=== PATIENT | male | born 1955 | race Caucasian/White ===

== ENCOUNTER 2021-07-25 12:23 | Inpatient (IN) | payer MEDICARE, SELFPAY ==
[2021-07-25] VITALS (21 sets, daily range): BP systolic 110–191; BP diastolic 67–120; PULSE 69–102; RESP 17–24; TEMP 36.4–36.8; O2SAT 96–100; BMI 36.3; BMI 34.9
--- NOTE | 2021-07-25 12:42 | XR_ITS ---
WS: [id number] Portable AP upright chest, 07/25/2021 Clinical Data: chest pain, sob Comparison: None. Findings: No nodules, masses or effusions are seen. The heart is normal. The pulmonary vascularity is not increased. No pneumonia or pneumothorax is seen. There is minimal tortuosity of the aortic arch. The diaphragms are flattened. XR/XR chest 1V portable [id number] Impression: Atherosclerosis and hyperinflation.
--- NOTE | 2021-07-25 12:42 | ECG_ITS ---
[facility] Test Date: 2021-07-25 Pat Name: Baldo Luong Department: Room: Gender: Male Substation Inspector: : 1955 Requested By: Amandeep Arenas Order Number: [id number] Di MD: Renuka Cash M.D. Measurements Intervals [place] Rate: 75 P: 93 [place]: 162 QRS: 28 QRSD: 117 T: 57 QT: 388 QTc: 434 Interpretive Statements SINUS RHYTHM POSSIBLE RIGHT VENTRICULAR CONDUCTION DELAY [RSR (QR) IN V1/V2] Compared to ECG 07/25/2021 12:34:48 Sinus tachycardia no longer present Incomplete right bundle-branch block no longer present Electronically Signed On 07-25-2021 23:44:12 SENIOR PRODUCTION PLANNER by Renuka Cash M.D. [id number]
--- NOTE | 2021-07-25 13:01 | ED_ITS ---
HPI - Chest Pain General: Chief Complaint: Chest Pain Stated Complaint: CP: SEEN DR VELAZQUEZ YESTERDAY Time Seen by Provider: 07/25/21 13:00 History of Present Illness: HPI narrative: Mr. Luong is a 65-year-old gentleman with significant past medical history of hypertension, hyperlipidemia, obesity, history of [place], COPD with chronic hypoxic respiratory failure who presents to the emergency department due to shortness of breath and chest pain. He reports shortness of breath has worsened from baseline over the past 2 to 3 weeks. Course has been gradually worsening. Onset is now moderate to severe and he describes marked dyspnea after only 10 feet of walking. Mild associated productive cough worse than baseline. He has been out of his albuterol treatments for the past few days. Additionally he has chest pressure in the lower chest bilaterally. This does correlate specifically with exertion and at times radiates to the right arm. Overall the course of symptoms has been worsening. No other new changes in health, exacerbating, or alleviating factors identified. Review of Systems General: Reports: 10 or more systems reviewed and unremarkable except in HPI and below PFSH ED PFSH: Medical History (Updated 07/29/21 @ 11:35 by Milad Mock M.D) Asthma Carpal tunnel syndrome, bilateral COPD (chronic obstructive pulmonary disease) Dupuytren's contracture of both hands History of [place] (myocardial infarction) Hypertension (Unknown) Myocardial infarct Surgical History (Updated 07/27/21 @ 12:00 by Yahir Lopes MD) History of heart artery stent 2 placed (reported maybe 2017) Third stent placed on 07/26 Family History Mother Cancer Other Heart disease Social History Smoking and tobacco status: former smoker Alcohol intake: never Adopted: No Caregiver/support person: No Lives independently: Yes service: No Current occupational status: disabled Current gender identity: Male Physical Exam Narrative: EXAM NARRATIVE: GENERAL/CONSTITUTIONAL -chronically ill-appearing. No acute distress. Obese Eyes - PERRL, no conjunctival injection ENMT - Atraumatic external nose and ears. Moist mucous membranes NECK - supple. trachea midline CARDIOVASCULAR - regular rate and rhythm. Peripheral pulses 2+ and equal RESPIRATORY - diminished to auscultation bilaterally, mild tachypnea, supplemental oxygen in place. ABDOMEN/GI - Nontender/Nondistended. MSK - Extremities without obvious deformity or tenderness to palpation SKIN - Warm, Dry NEURO - alert and appropriately oriented. Moves all extremities equally. Course ED course: - Patient was seen and evaluated by me at bedside - Patient placed on cardiac monitors, IV access obtained - Initial evaluation notable for no acute distress, nontoxic appearance. Exam as noted above. - Labs notable for no leukocytosis. Metabolic panel with mildly decreased sodium however no other significant electrolyte abnormality. Baseline troponin elevated. Covid negative. - Imaging notable for no lobar consolidation. - Discussed case with cardiology, treated patient is NSTEMI. Plan to admit for cardiac catheterization with cardiology consult and medicine admission. - Upon serial reexamination after treatment the patient was similar - Based on patient history, evaluation, labs, and imaging as interpreted the most likely cause of the patient's condition is NSTEMI - The results of ED evaluation were discussed with the patient including plan for admission due to requirement for level of care not available if discharged to prevent significant worsening/deterioration. -Hospitalist service contacted and agreed admit the patient. - Patient was admitted without further deterioration or significant events. Vital Signs: Vital signs: Vital Signs Temperature 97.9 F 07/30/21 08:32 Pulse Rate 65 07/30/21 12:12 Respiratory Rate 20 H 07/30/21 12:12 Blood Pressure 100/69 07/30/21 14:30 Pulse Oximetry 94 07/30/21 12:12 MDM - Chest Pain Medical Records: Attestation: I reviewed the patient's medical records. Lab Data: Attestation: I reviewed the patient's lab results. Labs: Lab Results 07/25/21 07/25/21 07/25/21 13:36 13:36 13:36 WBC 5.5 10^3/uL 10^3/ uL (4.0-10.0) RBC 4.75 10^6/uL 10^6 /uL (4.1-5.3) Hgb 14.0 g/dL g/dL (11.7-16.6) Hct 41.3 % L % (42.0-52.0) MCV 86.9 fl fl (80-94) MCH 29.5 pg pg (28.0-34.0) MCHC 33.9 g/dL g/dL (30.0-36.0) RDW 13.2 % % (12.1-15.1) Plt Count 181 10^3/cmm 10^3 /cmm (130-400) MPV 10.2 fL fL (7.4-10.4) Neut % (Auto) 75.5 % % Lymph % (Auto) 14.6 % % Vermilion % (Auto) 9.3 % % Eos % (Auto) 0.0 % % Baso % (Auto) 0.2 % % Neut # (Auto) 4.14 10^3/uL 10^3 /uL (1.8-7.7) Lymph # (Auto) 0.8 10^3/uL 10^3/ uL (0.8-4.8) Vermilion # (Auto) 0.5 10^3/uL 10^3/ uL (0.2-0.9) Eos # (Auto) 0.0 10^3/uL 10^3/ uL (0.0-0.8) Baso # (Auto) 0.0 10^3/uL 10^3/ uL (0.0-0.1) Nucleated RBC % (a uto) 0 % % Nucleated RBCs # 0.0 /100WBC /100W BC Sodium 135 mmol/L L mmol /L (136-145) Potassium 4.5 mmol/L mmol/L (3.5-5.1) Chloride 100 mmol/L mmol/L (98-107) Carbon Dioxide 24 mmol/L mmol/L (22-29) Anion Gap 15.5 (5-19) BUN 25 mg/dL H mg/dL (8-23) Creatinine 1.2 mg/dL mg/dL (0.7-1.2) GFR Calculation 60.8 mL/min L mL/ min (90-130) Glucose 113 mg/dL mg/dL (65-115) Estimat Average Gl ucose Hemoglobin A1c Calculated Osmolal ity 285 mOsm/kg mOsm/ kg (285-295) Calcium 8.5 mg/dL mg/dL (8.5-10.5) Total Bilirubin 0.6 mg/dL mg/dL (0.15-1.2) AST 29 U/L U/L (0-40) ALT 27 U/L U/L (0-41) Alkaline Phosphata se 87 IU/L IU/L (40-130) Troponin T Baselin e 317 ng/L H* ng/L (0-15) Total Protein 7.0 g/dL g/dL (6.6-8.7) Albumin 3.7 g/dL g/dL (3.5-5.2) Globulin 3.3 g/dL g/dL (1.3-4.6) Triglycerides Cholesterol LDL Cholesterol, C alc HDL Cholesterol LDL/HDL Ratio Cholesterol/HDL Ra elliott Lipase 21 U/L U/L (13-60) Procalcitonin 0.17 ng/mL ng/mL (0-0.5) TSH SARS-CoV-2 Ag (Rap id) 07/25/21 07/25/21 07/25/21 13:36 13:36 13:43 WBC RBC Hgb Hct MCV MCH MCHC RDW Plt Count MPV Neut % (Auto) Lymph % (Auto) Vermilion % (Auto) Eos % (Auto) Baso % (Auto) Neut # (Auto) Lymph # (Auto) Vermilion # (Auto) Eos # (Auto) Baso # (Auto) Nucleated RBC % (a uto) Nucleated RBCs # Sodium Potassium Chloride Carbon Dioxide Anion Gap BUN Creatinine GFR Calculation Glucose Estimat Average Gl ucose 117 Hemoglobin A1c 5.7 % % (4.0-6.0) Calculated Osmolal ity Calcium Total Bilirubin AST ALT Alkaline Phosphata se Troponin T Baselin e Total Protein Albumin Globulin Triglycerides 115 mg/dL mg/dL (0-150) Cholesterol 119 mg/dL mg/dL (0-200) LDL Cholesterol, C alc 69 mg/dL mg/dL (50-129) HDL Cholesterol 27 mg/dL L mg/dL (60-100) LDL/HDL Ratio 2.56 RATIO RATIO (0.00-3.22) Cholesterol/HDL Ra elliott 4.41 mg/dL mg/dL (1.0-5.00) Lipase Procalcitonin TSH 0.75 uIU/mL uIU/m L (0.27-4.20) SARS-CoV-2 Ag (Rap id) Negative (Negative) EKG Data^: EKG 1: Attestation: I personally reviewed and interpreted this EKG as follows: EKG interpretation date: 07/25/21 EKG interpretation time: 14:01 Interpretation: Twelve-lead EKG shows a regular rhythm at a rate of 100. HI interval 158, QRS duration 112, QTc 407. Normal axis. Interpretation: Sinus rhythm. Nonspecific ST segment abnormalities. EKG 2: Attestation: I personally reviewed and interpreted this EKG as follows: EKG interpretation date: 07/25/21 EKG interpretation time: 15:08 Interpretation: Twelve-lead EKG shows a regular rhythm at a rate of 75. HI interval 162, QRS duration 117, QTc 416. Normal axis. Interpretation: Sinus rhythm. Nonspecific ST segment abnormalities. Discharge Plan Discharge Patient Disposition: Admitted As Inpatient Admit Provider: Yahir Lopes Clinical Impression: Non-ST elevation (NSTEMI) myocardial infarction, COPD (chronic obstructive pulmonary disease) Condition: Stable Discharge Diet: Cardiac Discharge Activity: Increase activity as tolerated Coding Level of Care Code ED Concrete Vibrator Operator for Gladys Quezada
[2021-07-25 13:42] LABS: Basophils % 0.2 %; Hematocrit 41.3 % (42.0-52.0); Lymphocytes # 0.8 10^3/uL (0.8-4.8); Lymphocytes % 14.6 %; Mean Corpuscular HGB Conc 33.9 g/dL (30.0-36.0); Mean Corpuscular Hemoglobin 29.5 pg (28.0-34.0); Mean Corpuscular Volume 86.9 fl (80-94); Mean Platelet Volume 10.2 fL (7.4-10.4); Monocytes # 0.5 10^3/uL (0.2-0.9); Monocytes % 9.3 %; Neutrophils # 4.14 10^3/uL (1.8-7.7); Neutrophils % 75.5 %; Nucleated Red Blood Cells % 0 %; Platelet Count 181 10^3/cmm (130-400); Red Blood Count 4.75 10^6/uL (4.1-5.3); Red Cell Distribution Width 13.2 % (12.1-15.1); White Blood Count 5.5 10^3/uL (4.0-10.0)
[2021-07-25] MEDS: ipratropium-albuterol 3 mL Neb INHALATION (13:51)
[2021-07-25 14:18] LABS: Alanine Aminotransferase 27 U/L (0-41); Albumin Level 3.7 g/dL (3.5-5.2); Alkaline Phosphatase 87 IU/L (40-130); Anion Gap 15.5 (5-19); Aspartate Amino Transferase 29 U/L (0-40); Blood Urea Nitrogen 25 mg/dL (8-23); Calcium 8.5 mg/dL (8.5-10.5); Carbon Dioxide 24 mmol/L (22-29); Chloride 100 mmol/L (98-107); Globulin 3.3 g/dL (1.3-4.6); Glomerular Filtration Rate 60.8 mL/min (90-130); Glucose 113 mg/dL (65-115); Lipase 21 U/L (13-60); Osmolality Calculated 285 mOsm/kg (285-295); Potassium 4.5 mmol/L (3.5-5.1); Sodium 135 mmol/L (136-145); Total Bilirubin 0.6 mg/dL (0.15-1.2)
[2021-07-25 14:19] LABS: Troponin(5th) Baseline 317 ng/L (0-15)
[2021-07-25 14:21] LABS: Procalcitonin 0.17 ng/mL (0-0.5)
[2021-07-25 14:23] LABS: SARS Covid-2 Antigen Negative (Negative)
[2021-07-25] MEDS: aspirin 81 mg Chew Tablet 324 MG PO (14:27)
--- NOTE | 2021-07-25 14:42 | ECG_ITS ---
[facility] Test Date: 2021-07-25 Pat Name: Baldo Luong Department: Room: Gender: Male Hand Shoes Sewer: : 1955 Requested By: Amandeep Arenas Order Number: [id number] Di MD: Renuka Cash M.D. Measurements Intervals [place] Rate: 100 P: 92 [place]: 158 QRS: 47 QRSD: 112 T: 62 QT: 350 QTc: 453 Interpretive Statements SINUS TACHYCARDIA INCOMPLETE RIGHT BUNDLE BRANCH BLOCK [90+ ms QRS DURATION, TERMINAL R IN V1/V2, 40+ ms S IN I/aVL/V4/V5/V6] ABNORMAL RHYTHM ECG No previous ECG available for comparison Electronically Signed On 07-25-2021 23:55:05 FREEZING MACHINE OPERATOR by Renuka Cash M.D. [id number]
[2021-07-25] MEDS: enoxaparin 120 mg/0.8 mL Syringe SUBCUT (15:12)
--- NOTE | 2021-07-25 16:13 | P.HP_ITS ---
Providers/Chief Complaint Primary Care Provider: ELLIOT Coreas Chief Complaint: CP: SEEN DR VELAZQUEZ YESTERDAY History of Present Illness Baldo Luong is a 65-year-old male who has history of chronic hypoxia 3L at baseline for COPD, established coronary disease status post PCI to LAD 2 years ago in [place] has been experiencing shortness of breath and chest discomfort for last 2 to 3 weeks. He was evaluated by Dr. Mock yesterday in the clinic and he was recommended to go to the ER for admission however patient waited until today. There is plan for angiogram. Dr. Mock is consulted. EKG showing incomplete right bundle branch block, troponin significantly high, patient hemodynamically stable Patient is stating that for last 3 weeks she has been experiencing shortness of breath on exertion, he has not noticed any fever, productive cough, is endorsing on and off orthopnea and PND, he has quit smoking 5 years ago. Drinks alcohol occasionally. He has also noticed some epigastric discomfort which she is describing as burning sensation however it radiates towards his both arms. He has not noticed any diaphoresis or episode of emesis with it. He is compliant with his medications. Patient is stating that his stent was placed in [facility] in [place], 2 stents have been placed last stent was placed in [place]. In total he has had 2 MIs in the past. Requested records from the hospital Started nitro drip for hypertensive emergency Significant troponin leakage Patient is chest pain-free Heart rate 85, sinus Not complaining of active shortness of breath, no conversational dyspnea Dr. Mock planning for angiogram in the morning Patient does not believe in COVID-19 infection, he is not vaccinated for flu or COVID-19. Patient is stating that yesterday his sister was sick and she needed to see a doctor right away that is why he was unable to come to the ER. He does not have any DPOA but prefers to have his [id number] informed first , CBC, BMP unremarkable, chest x-ray: Unremarkable, TSH and procalcitonin unremarkable in the ER he was given loading dose of aspirin, he was given first dose of Lovenox and DuoNeb treatment Review of Systems Const: Reports: chills, body aches and fatigue Eyes: Reports: change in vision ENMT: Denies: throat pain Card: Reports: dyspnea on exertion and orthopnea Resp: Reports: dyspnea GI: Denies: abdominal pain : Denies: flank pain Musc: Denies: neck pain Skin/Breast: Denies: changing lesions Neuro: Denies: headache(s) Psych: Denies: anxiety Endo: Denies: polyuria Abilio/Lymph: Denies: easy bruising All/Imm: Denies: urticaria Medications/Allergies Home Medications Medication Instructions Recorded Confirmed Last Taken Type atorvastatin 40 mg tablet 40 mg PO DAILY 07/10/21 07/25/21 Unknown History clopidogrel 75 mg tablet 75 mg PO DAILY 07/10/21 07/25/21 Unknown History fluticasone fur. 100 mcg-umeclid 1 inh INHALATION Q24H 07/10/21 07/25/21 Unknown History 62.5 mcg-vilant 25 mcg inhalat.powder metoprolol succinate 25 mg 25 mg PO DAILY 07/10/21 07/25/21 Unknown History tablet,extended release 24 hr acetaminophen [Tylenol Ex Str 1,000 mg PO Q4H PRN 07/25/21 07/25/21 Unknown History Rapid Release] aspirin [Aspir-81] 81 mg PO DAILY 07/25/21 07/25/21 Unknown History naproxen sodium [Aleve] 660 - 880 mg PO Q12H PRN 07/25/21 07/25/21 Unknown History Allergies Allergy/AdvReac Type Severity Reaction Status Date / Time Penicillins Allergy Unknown Verified 07/25/21 14:07 PFSH Acute PFSH: Medical History (Updated 07/25/21 @ 19:25 by Yahir Lopes MD) Asthma Carpal tunnel syndrome, bilateral COPD (chronic obstructive pulmonary disease) Dupuytren's contracture of both hands History of [place] (myocardial infarction) Hypertension (Unknown) Myocardial infarct Surgical History History of heart artery stent 2 placed (reported maybe 2017) Family History Mother Cancer Other Heart disease Social History Smoking and tobacco status: former smoker Alcohol intake: never Adopted: No Caregiver/support person: No Lives independently: Yes service: No Current occupational status: disabled Current gender identity: Male Vitals/I&O/Wt Last Vital Signs Temp 97.6 F 07/25/21 12:36 Pulse 85 07/25/21 15:05 Resp 17 07/25/21 15:54 BP 138/88 07/25/21 15:54 Pulse Ox 97 07/25/21 15:54 Weight last 48 hrs Weight 121.563 kg Physical Exam Narrative: EXAM NARRATIVE: Morbidly obese male Appears stated age S1, S2 Hypertensive emergency No active neurological symptoms EOMI, PERRLA Awake alert Distended abdomen with obesity Saturating well on 2 L nasal cannula Bilateral breath sound without adventitious rhonchi or crackles Appropriate mood and affect No leg edema Data : 07/25/21 13:36 07/25/21 13:36 A&P Assessment and plan (1) Non-ST elevation (NSTEMI) myocardial infarction: Status: Acute (2) Unstable angina: Status: Acute (3) COPD (chronic obstructive pulmonary disease): Status: Acute (4) Hypertension: Status: Acute Qualifiers: Hypertension type: primary hypertension Qualified Code(s): I10 - Essential (primary) hypertension (5) Hypertensive emergency: Status: Acute Additional A&P Information NSTEMI No active chest pain Dyspnea on exertion for last 3 weeks, troponin [address] elevation ID changes on EKG Plan for angiogram in the morning N.p.o. after midnight Started aspirin, Plavix, atorvastatin and therapeutic dose of Lovenox Echo in the morning Covid antigen negative patient is not vaccinated Hypertensive emergency: TSH is normal, procalcitonin unremarkable We will start nitro drip and titrate to bring pressure below 140/80 mmHg Nurse updated in CSU, no active chest pain No active neurological signs or symptoms I do not see any antihypertensive agents in his home medications Check lipid panel Patient denying chest pain or radiation of pain between his shoulder blades No radiio-radial delay, threshold low to get CTA chest to rule out dissection in case he starts having chest pain overnight COPD without acute exacerbation Currently at baseline 3 to nasal cannula Full code N.p.o. after midnight DVT prophylaxis covered with therapeutic Lovenox No DPOA but wants his [id number] to be notified first [facility] Attestations Medical Necessity Statement*: More than 2 midnights anticipated Time Spent in Patient Care: Greater than 35 minutes Coding Level of Care Code Acute Binder Sorter for Chg Fwd Diagnoses Non-ST elevation (NSTEMI) myocardial infarction I21.4 Unstable angina I20.0 COPD (chronic obstructive pulmonary disease) J44.9 Hypertension I10 Hypertension type: primary hypertension Hypertensive emergency I16.1
[2021-07-25 16:24] LABS: Troponin 5 2HR Delta -1.1 ABS# (0-10)
[2021-07-25 16:25] LABS: Troponin 5 2HR 315.9 ng/L (0-15)
[2021-07-25 17:21] LABS: Estmated Average Glucose 117; Hemoglobin A1C 5.7 % (4.0-6.0)
[2021-07-25 17:22] LABS: Chol HDL Ratio 4.41 mg/dL (1.0-5.00); Cholesterol 119 mg/dL (0-200); HDL Cholesterol 27 mg/dL (60-100); LDL Cholesterol Calculated 69 mg/dL (50-129); LDL HDL Ratio 2.56 RATIO (0.00-3.22); Thyroid Stimulating Hormone 0.75 uIU/mL (0.27-4.20); Triglycerides 115 mg/dL (0-150)
--- NOTE | 2021-07-25 18:20 | PM.CONSULT ---
Providers/Reason For Consult Consulting Physician/Specialty*: Milad Mock MD/ Cardiology Reason for Consult*: NSTEMI Requesting Physician: Dr Arenas Attending Physician: Yahir Lopes MD Primary Care Provider: ELLIOT Coreas History of Present Illness History of Present Illness Baldo Luong is a 65 year old male with past medical history of hypertension, COPD on 3 L oxygen chronically, coronary artery disease s/p PCI 1 to 2 years ago in [place] presented for complaints of substernal heartburn and pressure. According to patient he was doing well about 2 to 3 weeks ago when he started noticing substernal heartburn and pressure sensation. It radiates to both arms. Both exertional and nonexertional. I saw patient in the office yesterday and I advised him to go to the ER however he did not want to come to the ER and wanted to be managed as outpatient. We had requested outpatient cardiac catheterization however given his worsening symptoms of chest pain he presented to the hospital today. His initial troponin was over 300. EKG shows normal sinus rhythm with heart rate of 75 bpm, incomplete right bundle branch block and no ischemic changes. Review of Systems Const: Reports: fatigue; Denies: fever(s) or chills Eyes: Denies: change in vision ENMT: Denies: throat pain Card: Reports: chest pain, dyspnea on exertion, orthopnea and leg pain with exertion; Denies: palpitations, irregular heart rhythm, swelling of feet/ankles, lightheadedness, syncope or pre-syncope Resp: Reports: dyspnea; Denies: productive cough GI: Denies: nausea, vomiting or diarrhea : Denies: difficulty urinating or urinary frequency Musc: Reports: back pain; Denies: neck pain or joint pain Skin/Breast: Denies: rash or erythema Neuro: Denies: numbness in extremities or weakness in extremities Psych: Denies: anxiety, depression, suicidal ideation or homicidal ideation Endo: Reports: tired all the time Abilio/Lymph: Reports: easy bruising and easy bleeding All/Imm: Denies: seasonal rhinorrhea Meds/Allergies Home Medications and Allergies Home Medications Medication Instructions Recorded Confirmed Last Taken Type atorvastatin 40 mg tablet 40 mg PO DAILY 07/10/21 07/25/21 Unknown History clopidogrel 75 mg tablet 75 mg PO DAILY 07/10/21 07/25/21 Unknown History fluticasone fur. 100 mcg-umeclid 1 inh INHALATION Q24H 07/10/21 07/25/21 Unknown History 62.5 mcg-vilant 25 mcg inhalat.powder metoprolol succinate 25 mg 25 mg PO DAILY 07/10/21 07/25/21 Unknown History tablet,extended release 24 hr acetaminophen [Tylenol Ex Str 1,000 mg PO Q4H PRN 07/25/21 07/25/21 Unknown History Rapid Release] aspirin [Aspir-81] 81 mg PO DAILY 07/25/21 07/25/21 Unknown History naproxen sodium [Aleve] 660 - 880 mg PO Q12H PRN 07/25/21 07/25/21 Unknown History Allergies Allergy/AdvReac Type Severity Reaction Status Date / Time Penicillins Allergy Unknown Verified 07/25/21 14:07 PFSH Acute PFSH: Medical History Asthma Carpal tunnel syndrome, bilateral COPD (chronic obstructive pulmonary disease) Dupuytren's contracture of both hands History of [place] (myocardial infarction) Hypertension (Unknown) Myocardial infarct Surgical History History of heart artery stent 2 placed (reported maybe 2017) Family History Mother Cancer Other Heart disease Social History Smoking and tobacco status: former smoker Alcohol intake: never Adopted: No Caregiver/support person: No Lives independently: Yes service: No Current occupational status: disabled Current gender identity: Male Vitals/I&O/Wt Last Vital Signs Temp 97.6 F 07/25/21 12:36 Pulse 69 07/25/21 17:34 Resp 17 07/25/21 17:34 BP 187/120 07/25/21 17:34 Pulse Ox 98 07/25/21 17:34 Weight last 48 hrs Weight 268 lb Physical Exam Narrative: EXAM NARRATIVE: GENERAL: Patient is alert, awake and oriented x3. [] NECK: No jugular vein distension. [] HEENT: No cyanosis. No icterus. No pallor. [] HEART: Regular S1 and S2. No murmur, rub or gallop. [] LUNGS: Clear to auscultate bilaterally. [] ABDOMEN: Soft, nontender and nondistended. Positive bowel sounds. No guarding, rebound or tenderness. [] CENTRAL NERVOUS SYSTEM: Grossly nonfocal. [] EXTREMITIES: Lower extremities with 1+ edema bilaterally. Pulses palpable in the lower extremities, both dorsalis pedis and posterior tibial. [] A&P Assessment and plan (1) Non-ST elevation (NSTEMI) myocardial infarction: Status: Acute (2) COPD (chronic obstructive pulmonary disease): Status: Acute (3) Hypertension: Status: Acute Qualifiers: Hypertension type: primary hypertension Qualified Code(s): I10 - Essential (primary) hypertension (4) Hypertension: Status: Acute Patient has presented with non-ST elevation DE. He has been having unstable angina symptoms for the last 2-3 weeks. Trend troponin Continue aspirin and Plavix. High intensity statin therapy. Start therapeutic Lovenox. Order echocardiogram. We will proceed with coronary angiogram with possible percutaneous coronary intervention tomorrow. N.p.o. past midnight. Risks and benefits of the procedure have been discussed with the patient who agrees with proceeding with procedure. Thank you for involving us with care of this patient. We will continue to follow. Please call with questions. Coding Level of Care Code Acute Airplane Pilot Chief for Gladys Quezada Diagnoses Non-ST elevation (NSTEMI) myocardial infarction I21.4 COPD (chronic obstructive pulmonary disease) J44.9 Hypertension I10 Hypertension type: primary hypertension Hypertension I10
--- NOTE | 2021-07-25 18:42 | ECG_ITS ---
[facility] Test Date: 2021-07-25 Pat Name: Baldo Luong Department: Room: 103 Gender: Male Cheese Wrapper: : 1955 Requested By: Amandeep Arenas Order Number: [id number] Di MD: Renuka Cash M.D. Measurements Intervals [place] Rate: 73 P: 81 [place]: 163 QRS: 24 QRSD: 118 T: 51 QT: 410 QTc: 452 Interpretive Statements SINUS RHYTHM INCOMPLETE RIGHT BUNDLE BRANCH BLOCK [90+ ms QRS DURATION, TERMINAL R IN V1/V2, 40+ ms S IN I/aVL/V4/V5/V6] Compared to ECG 07/25/2021 15:02:36 Incomplete right bundle-branch block now present Electronically Signed On 07-25-2021 23:56:35 FIELD EDUCATION COORDINATOR by Renuka Cash M.D. [id number]
--- NOTE | 2021-07-25 19:27 | PC.NURSE ---
Admit Note Patient admitted to CSU room 103 from ED via stretcher. Patient able to ambulate to bathroom and back to bed with standby assist. Dr Lopes in to see patient. Dr Mock consulted. Discussed plan for LHC in the morning. Patient verbalized complete understanding. Covering service notified. Patient presents with increased SOB and chest pain. Orders reviewed & will continue to monitor. Patient and/or inbound sales representative oriented to environment, equipment, and informed of the following as found in the admission booklet: patient rights & responsibilities, visitor policy, hand and respiratory hygiene practice. Other education includes: Nitroglycerin. Patient verbalized complete understanding.
--- NOTE | 2021-07-25 19:27 | PC.NURSE ---
Admit Note Patient admitted to [] from [] via []. Covering service notified. Patient presents with []. Orders reviewed & will continue to monitor. Patient and/or dental sales representative oriented to environment, equipment, and informed of the following as found in the admission booklet: patient rights & responsibilities, visitor policy, hand and respiratory hygiene practice. Other education includes: []. Patient and/or dental sales representative [ResponseToTeaching].
[2021-07-25] MEDS: nitroglycerin drip 50 MG/250 ML PREMIX IV (19:59)
[2021-07-25 20:00] LABS: Troponin 5 6HR 258.4 ng/L (0-15)
[2021-07-26] VITALS (59 sets, daily range): BP systolic 95–192; BP diastolic 51–125; PULSE 65–110; RESP 8–24; TEMP 36.6–36.7; O2SAT 94–100
[2021-07-26] MEDS: morphine IR 15 mg Tablet PO ×3 (01:35→18:30)
[2021-07-26 03:55] LABS: Basophils % 0.2 %; Hematocrit 39.5 % (42.0-52.0); Lymphocytes # 0.9 10^3/uL (0.8-4.8); Lymphocytes % 14.8 %; Mean Corpuscular HGB Conc 32.9 g/dL (30.0-36.0); Mean Platelet Volume 10.2 fL (7.4-10.4); Monocytes # 0.4 10^3/uL (0.2-0.9); Monocytes % 7.3 %; Neutrophils # 4.43 10^3/uL (1.8-7.7); Neutrophils % 77.4 %; Nucleated Red Blood Cells % 0 %; Platelet Count 169 10^3/cmm (130-400); Red Blood Count 4.49 10^6/uL (4.1-5.3); White Blood Count 5.7 10^3/uL (4.0-10.0)
[2021-07-26 05:11] LABS: Anion Gap 17.2 (5-19); Blood Urea Nitrogen 27 mg/dL (8-23); Calcium 7.7 mg/dL (8.5-10.5); Carbon Dioxide 19 mmol/L (22-29); Chloride 98 mmol/L (98-107); Glucose 110 mg/dL (65-115); Osmolality Calculated 276 mOsm/kg (285-295); Potassium 4.2 mmol/L (3.5-5.1); Sodium 130 mmol/L (136-145)
[2021-07-26] MEDS: sodium chloride 0.9% 1,000 ML 50 ML IV (05:13)
[2021-07-26] MEDS: diphenhydrAMINE 50 mg Capsule PO (05:13)
[2021-07-26] MEDS: ondansetron 2 mg/ML SDV 2 mL 4 MG IVP (05:24)
--- NOTE | 2021-07-26 05:37 | XACV_ITS ---
Exam Room: [facility] Ht: 183 cm Wt: 117 kg BSA: 2.47 m2 Gender: Male : 1955 Any Known Allergies: Penicillins Exam Priority: Routine Indication(s): - Non-ST elevation NE Procedure(s): Procedure Description: Diagnostic procedure Procedure Description: Coronary Angiography Procedure Description: Percutaneous coronary intervention Diagnostic Cath Status: Urgent Diagnostic Findings * No significant disease noted in the Left Main, Left Anterior Descending, Right, or Circumflex coronary arteries. Left main artery is very short, almost separate ostia of LAD and left circumflex artery. LAD does not have any significant disease. RCA has diffuse mild luminal irregularities. Left circumflex artery has a patent stent that extends into OM1. OM1 is a large vessel. OM1 has severe 90% stenosis post prior stent.. * First Obtuse Marginal Branch Segment: severe 90% stenosis, DOM: 3 flow. * Coronary angiography shows right dominance. PCI Status: Urgent PCI Indication: NSTE - ACS Interventional Findings * Procedure details: We engaged left main artery with XB 3.5 guide catheter. IV heparin was administered to maintain an ACT above 250 seconds. A 0.014 run-through guidewire was used to cross the stenosis and was placed in distal OM 1 branch. 2.5 x 12 mm semicompliant balloon was used to predilate the stenosis in the OM branch. This was followed by placement of 2.75 x 18 mm resolute Desirae drug-eluting stent. At this time final angiogram was performed that showed excellent stent expansion, DOM-3 flow and no residual stenosis. Guidewire and guide catheter were removed. Patient left the Stroboscope Operator in a stable condition. * First Obtuse Marginal Branch Segment: 90% stenosis treated with a AB TREK 2.50X12 RX BALLOON, and BRITTANY Epperson DESIRAE 2.75X18 CORNELIO. 0% residual stenosis, DOM: 3 flow. Conclusions 1. No significant disease noted in the Left Main, Left Anterior Descending, Right, or Circumflex coronary arteries. Left main artery is very short, almost separate ostia of LAD and left circumflex artery. LAD does not have any significant disease. RCA has diffuse mild luminal irregularities. Left circumflex artery has a patent stent that extends into OM1. OM1 is a large vessel. OM1 has severe 90% stenosis post prior stent.. 2. First Obtuse Marginal Branch Segment was treated with a Balloon, and Drug Eluting Stent. Recommendations * Transfer back to [facility]. * Aspirin and Plavix for at least 1 year. * High intensity statin therapy. * Order echocardiogram. * Outpatient cardiology follow-up in 4 weeks. Interventional RX Recommendation: PCI w/o planned CABG Diagnostic RX Recommendation: PCI w/o planned CABG Anticoagulation: Heparin Pressures Phase:Rest AO : / ( 0 ) @ 4:21:00 AM 127 / 88 ( 108 ) @ 4:33:00 AM 163 / 81 ( 112 ) @ 4:40:00 AM 163 / 81 ( 112 ) @ 4:40:00 AM 147 / 101 ( 119 ) @ 4:55:00 AM LV : 180 / -29 / 15 @ 4:40:00 AM 187 / -12 / 23 @ 4:40:00 AM Valves Phase:DefaultPhase AV : 23.0 @ 7:06:02 AM AV Mean Gradient: 28.0 @ 7:06:02 AM Clinical Evaluation EBL: 5mL-10mL Procedural Details Procedure Consent Obtained. Admit Source: In Patient. Pre-Procedure Time Out. Identified patient by full name and date of as verbalized by the patient/guarantor. Does the consent match the physician's order: Yes. Accurate & Complete Informed Consent: Yes. Inpatient/Outpatient History & Physical on Chart: Yes. Visualize and Verify Site with Patient/Guarantor: N/A. Relevant Radiology Images available: N/A. Pre-op teaching completed and patient verbalized understanding. The risks, benefits, and alternatives of sedation and/or procedure were discussed by physician. The patient agrees to continue. Procedure started. Current Diagnosis : NSTEMI. [facility] Clinical Fraility Score: 4: Vulnerable. Stroboscope Operator Indications: Other, NSTEMI. Chest Pain Symptom Assessment: Typical Angina Symptoms. Cardiovascular Instability: No. Stable. Correct patient, site and procedure confirmed by cath team. Current diagnosis: NSTEMI. Physician notified. Physician arrived. PERRLA. Strong, equal hand grease rack worker bilaterally. Lungs clear x 5 lobes. IV Site on Arrival: 20 gauge in the right anticubital. IV Fluids: 0.9% NaCl at KVO. 0 mL infused prior to calibration laboratory technician. Pre Procedural Pulses: bilateral radial was 3+. Pre Procedural Pulses: bilateral posterior tibial was Doppled. Pre Procedural Pulses: bilateral posterior tibial was Doppled. Oxygen started at 3liters/min via nasal canula. right groin was prepped with chloroprep then draped in the usual sterile fashion. right radial was prepped with chloroprep then draped in the usual sterile fashion. Baseline sample Acquired. HR: 84 BPM. Physician scrubbed in. Immediate Pre-Procedure Time Out. Correct Patient: Yes; Correct Procedure: Yes; Correct Site: Yes; Correct Patient Position: Yes; Correct Supplies: Yes; Dried Flammable Prep: Yes; Blood Products Available: N/A;. Lidocaine 1% infiltrated to the right radial. Arterial access obtained. A 5 citizen of [place] TIG catheter in over wire. Multiple views taken of left coronary artery. Catheter redirected to the RCA. Multiple views taken of right coronary artery. Inventory is TR 180cm Runthrough NS extra floppy 0.014 wire. Exchange wire inserted. Catheter dropped into the LV. Wire removed. EDP Sample taken: LV 180/-30,15; HR: 90 BPM; SpO2: 100%. Pullback taken: LV 187/-13,23; AO 163/81(112); Mean: 28mmHg, Peak to Peak: 23mmHg, SEP: 21sec/min; HR: 89 BPM; SpO2: 100%. Catheter removed over the wire. Starting intervention of the OM 1. Inventory is CRD 6 FR XB 3.5 GUIDE. 6 citizen [place] XB 3.5 guide catheter was inserted over the wire. Guided seated in the LCS. Runthrough guidewire was advanced through the guide catheter to lesion in the OM. Guidewire advanced across lesion. Inflation number : 1 A AB TREK 2.50X12 RX BALLOON was prepped and advanced across the 1st Ob Laila , then inflated to 8 MARY for 0:31 seconds. Inflation number: 2 The AB TREK 2.50X12 RX BALLOON was reinflated across the 1st Ob Laila, to 12 MARY for 0:30 seconds. Inflation number: 3 The AB TREK 2.50X12 RX BALLOON was reinflated across the 1st Ob Laila, to 12 MARY for 0:33 seconds. Balloon out over the wire. Angiography performed. Inflation Number : 4 Renny Epperson DESIRAE 2.75X18 CORNELIO -Lot Number#[id number] exp 04-22-24 was prepped and advanced across the 1st Ob Laila. The stent was deployed at 12 MARY for 0:32 seconds. Stent balloon out over the wire. Angiography performed. Wire out. Angiography performed. Physician review of films. ACT drawn. Results 231 seconds. Therapeutic limits - pre-heparin administration 90-150 seconds and monitoring heparin during a vascular procedure >250 seconds. Catheter removed over the wire. Nitro drip on from CSU mainitained throught the procedure. Physician scrubbed out. A TR Band was successful obtaining hemostatsis at the Right Radial artery insertion site. TR band placed. Hemostasis obtained. Post Procedure: Pulses reassessed and unchanged. PERRLA. Strong, equal hand grease rack worker bilaterally. No VTE prophylaxis required. Medication's Wasted: Lidocaine 1% = 18 mL. Total IV fluids: 150 mL. Fluoro: 8:09. Contrast type used: Omnipaque 300 mgI/mL, 500 mL bottle. [id number]. PCI Indication: NSTEMI. Post-op diagnosis: Severe OM 1 stenosis. Complications: None. Estimated blood loss: 5mL-10mL. Procedure completed. Patient transferred by wheelchair to 1st floor. Vital chart was stopped. Access Site Site: Right Radial artery Sheath Size: 6 Fr Hemostasis Method: TR Band Hemostasis Success: Successful Procedure Medications Start: 6:16 AM Stop: 6:16 AM Medication: Versed Amount: 1 mg Route: I.V. Start: 6:16 AM Stop: 6:16 AM Medication: Fentanyl Amount: 50 mcg Route: I.V. Start: 6:26 AM Stop: 6:26 AM Medication: Nitrogylcerin Amount: 200 mcg Route: I.A. Start: 6:32 AM Stop: 6:32 AM Medication: Heparin Amount: 5000 units Route: I.V. Start: 6:33 AM Stop: 6:33 AM Medication: Versed Amount: 1 mg Route: I.V. Start: 6:38 AM Stop: 6:38 AM Medication: Heparin Amount: 5000 units Route: I.V. Start: 6:45 AM Stop: 6:45 AM Medication: Fentanyl Amount: 50 mcg Route: I.V. Start: 6:51 AM Stop: 6:51 AM Medication: Heparin Amount: 1000 units Route: I.V. Start: 6:55 AM Stop: 6:55 AM Medication: Plavix Amount: 600 mg Route: P.O. Start: 6:57 AM Stop: 6:57 AM Medication: Heparin Amount: 1000 units Route: I.V. I, the attending physician, have reviewed and verified all procedure medications. Yes, all medications given per verbal order History/Risk Factors Hypertension: Yes Dyslipidemia: No Peripheral Arterial Disease (PAD): No Myocardial Infarction (NE): Yes Obesity: No Renal Disease: No Tobacco Use: Former Prior Interventions PCI: Yes CABG: No Valve Surgery: No Date of PCI: 08/25/2017 Report Signatures Finalized by Milad Mock MD on 07/26/2021 07:50 AM
--- NOTE | 2021-07-26 06:13 | W.PM.OPSUD ---
Surgery/Procedure H&P Update DATE OF PROCEDURE: July 26, 2021 DATE H&P PERFORMED: 07/25/21 H&P UPDATE INFORMATION: I have reviewed H&P completed within last 30 days, I have examined patient prior to procedure and No changes to prior documentation PREOP DIAGNOSIS: NSTEMI PRIMARY INDICATION FOR PROCEDURE: NSTEMI PLANNED PROCEDURE: Operation Date: 07/26/21 06:00 Proposed Procedures p Cardiac Catheterization(Left) - Milad Mock M.D Possible percutaneous coronary intervention PATIENT REASSESSED PRIOR TO SEDATION, WITH NO CHANGE NOTED: Yes PHYSICAL EXAM: alert, oriented x 3, clear to auscultation bilaterally and regular rate & rhythm AIRWAY EVAL/ANESTHESIA PLAN: ASA III, Monitored Anesthesia, Local Anesthesia, Risks, benefits & alternatives of sedation and/or procedure discussed and Patient agrees to continue as planned
--- NOTE | 2021-07-26 07:37 | PM.PN ---
Subjective Subjective: Interval history: Patient is doing better today. Coronary angiogram showed severe OM 1 stenosis and underwent successful revascularization of OM1 with CORNELIO x1. Vitals/I&O/Wt Last Vital Signs Temp 98 F 07/26/21 03:55 Pulse 87 07/26/21 05:15 Resp 18 07/26/21 05:15 BP 132/78 07/26/21 05:15 Pulse Ox 98 07/26/21 05:15 07/25/21 07/26/21 07/26/21 22:59 06:59 14:59 Intake Total 1.95 / 1.95 259.125 / 261.075 Balance 1.95 / 1.95 259.125 / 261.075 Weight last 48 hrs Weight 257 lb 8 oz Weight 268 lb Physical Exam Narrative: EXAM NARRATIVE: GENERAL: Patient is alert, awake and oriented x3. [] NECK: No jugular vein distension. [] HEENT: No cyanosis. No icterus. No pallor. [] HEART: Regular S1 and S2. No murmur, rub or gallop. [] LUNGS: Clear to auscultate bilaterally. [] ABDOMEN: Soft, nontender and nondistended. Positive bowel sounds. No guarding, rebound or tenderness. [] CENTRAL NERVOUS SYSTEM: Grossly nonfocal. [] EXTREMITIES: Lower extremities with 1+ edema bilaterally. Pulses palpable in the lower extremities, both dorsalis pedis and posterior tibial. [] Data : 07/26/21 03:38 07/26/21 03:38 A&P Assessment and plan (1) Non-ST elevation (NSTEMI) myocardial infarction: Status: Acute (2) COPD (chronic obstructive pulmonary disease): Status: Acute (3) Hypertension: Status: Acute Qualifiers: Hypertension type: primary hypertension Qualified Code(s): I10 - Essential (primary) hypertension (4) Hypertension: Status: Acute Patient underwent coronary angiogram today that showed severe 90% stenosis of OM1 that was treated with CORNELIO x1. Continue aspirin and Plavix High intensity statin therapy. Echocardiogram ordered Thank you for involving us with care of this patient. We will continue to follow. Please call with questions. Attestations Medical Necessity Statement*: Care expected to cross 2 midnights Coding Level of Care Code Acute Field Property Loss Specialist for Gladys Quezada Diagnoses Non-ST elevation (NSTEMI) myocardial infarction I21.4 COPD (chronic obstructive pulmonary disease) J44.9 Hypertension I10 Hypertension type: primary hypertension Hypertension I10
[2021-07-26] MEDS: acetaminophen 500 mg Tablet PO (07:39)
[2021-07-26] MEDS: metoprolol succinate ER (24 HR) 25 mg Tablet PO (09:14)
[2021-07-26] MEDS: amlodipine 10 mg Tablet PO (09:14)
[2021-07-26] MEDS: lisinopril 20 mg Tablet PO (09:14)
[2021-07-26] MEDS: FUROsemide 20 mg Tablet PO (09:14)
[2021-07-26] MEDS: atorvastatin 40 mg Tablet PO (09:14)
[2021-07-26] MEDS: clopidogrel 75 mg Tablet PO (09:14)
[2021-07-26] MEDS: sennosides-docusate Tablet 1 TAB PO (09:15)
[2021-07-26] MEDS: aspirin 81 mg EC Tablet PO (09:15)
--- NOTE | 2021-07-26 09:59 | PC.CHAP ---
Pastoral Care Encounter/Spiritual Assessment Type of Contact [] Declined fire crew worker visit [] Patient/Family/Request visit [] Outpatient visit [] Follow-up visit [] Physician referral [] Code/Alert [x] Routine visit [] Staff referral [] Actively dying [] Patient sleeping [] Family support [] [] Out of room [] Palliative care [x] [x] Receiving care in room [] Pre-surgical visit [] Trauma [] Long length of stay [] ICU visit [] Other: Relational/Emotional Strength [] Patient feels connected with others/family/visitors/staff [] Distress [] Loneliness/isolation [] Abandonment Spirituality of Patient [] Person of Cindy [] Attends Episcopalian of their Cindy [] Believes in Prayer [] Reads Bible or Muslim materials [] There are Spiritual issues to be addressed Parking Supervisor Interventions [] Prayer [] Active listening [] Non-anxious presence [] Spiritual/emotional support [] Crisis/trauma care [] Spiritual counseling [] Bereavement support [] Provided bereavement packet [] Provided Bible/devotional materials [] Provided toy/stuffed animal, coloring book to patient or family member [] Provided Communion [] Anointing/[place] [] Salvation [] Completed spiritual assessment [] Other: Impact on Illness or Injury [] Angry [] Fearful [] Anxious [] Often cries [] Exhaustion [] Unable to work [] Unable to attend religious [] Unable to walk/stand [] Unable to read [] Unable to drive [] Unable to eat/drink [] Unable to sleep [] Unable to be with family [] Patient intubated [] Other: Summary under Medical care and staff Time spent with patient 5 mins
--- NOTE | 2021-07-26 11:31 | PM.PN ---
Subjective Subjective: Interval history: Status post stent obtuse marginal drug-eluting stent on 07/25 Patient is noticing improvement in his symptoms Saturating well Still hypertensive Added antihypertensive regimen Vitals/I&O/Wt Last Vital Signs Temp 98 F 07/26/21 03:55 Pulse 83 07/26/21 10:00 Resp 19 H 07/26/21 10:00 BP 119/88 07/26/21 10:00 Pulse Ox 98 07/26/21 10:00 07/25/21 07/26/21 07/26/21 22:59 06:59 14:59 Intake Total 1.95 / 1.95 259.125 / 261.075 354 / 354 Balance 1.95 / 1.95 259.125 / 261.075 354 / 354 Weight last 48 hrs Weight 116.8 kg Weight 121.563 kg Physical Exam Narrative: EXAM NARRATIVE: Patient resting comfortably Saturating well on 3 L nasal cannula S1, S2 Abdomen distended visceral obesity Neuro: Nonfocal neuro exam No active chest pain EOMI, PERRLA Awake alert Ox3 GCS 15 Data : 07/26/21 03:38 07/26/21 03:38 A&P Assessment and plan (1) Hypertension: Status: Acute (2) Hypertensive emergency: Status: Acute (3) Non-ST elevation (NSTEMI) myocardial infarction: Status: Acute (4) Unstable angina: Status: Acute Additional A&P Information NSTEMI Status post drug-eluting stent OM1 x1 Symptom-free Chronic hypoxia: No acute COPD exacerbation doing well on 3 L dual antiplatelet therapy for 1 year, aspirin and Brilinta, previously he was on aspirin and Plavix We will follow up with cardiology outpatient, plan to discharge him tomorrow Quit smoking 5 years ago Cardiac diet For hypertension I will add lisinopril, amlodipine, Lasix and Toprol, follow-up with echo Full code Attestations Medical Necessity Statement*: Discharge tomorrow Time Spent in Patient Care: 16 - 35 minutes Coding Level of Care Code Acute Pediatrics Physician for Gladys Fwd Diagnoses Hypertension I10 Hypertensive emergency I16.1 Non-ST elevation (NSTEMI) myocardial infarction I21.4 Unstable angina I20.0
--- NOTE | 2021-07-26 19:05 | USCV_ITS ---
Baldo Luong Age: 65 Gender: M : 1955 Exam Date: 07/26/2021 12:24 Ordering Phys: Yahir Lopes MD Technologist: SARAH Exam Location: [facility] [place] Indication: NSTEMI BP: 110 / 78 HR: 73 Rhythm: Sinus Technical Quality: Technically difficult study MEASUREMENTS (Male / Female) Normal Values 2D ECHO LV Diastolic Diameter PLAX 4.2 cm 4.2 - 5.9 / 3.9 - 5.3 cm LV Systolic Diameter PLAX 2.7 cm IVS Diastolic Thickness 1.1 cm 0.6 - 1.0 / 0.6 - 0.9 cm IVS Systolic Thickness 1.4 cm LVPW Diastolic Thickness 1.2 cm 0.6 - 1.0 / 0.6 - 0.9 cm LVPW Systolic Thickness 1.4 cm LVOT Diameter 2.0 cm LV Ejection Fraction 2D Teich 65.6 % LV Ejection Fraction MOD 2C 55.6 % LV Ejection Fraction 2C AL 55.1 % LA Diameter 3.6 cm LA Width 3.0 cm LA Height 3.7 cm RA Width 3.3 cm RA Height 4.4 cm Aorta at Sinotubular Diameter 2.5 cm M-MODE Aortic Annulus Diameter 3.0 cm LA Ao Ratio MM 1.2 MV E Point Septal Separation 0.7 cm DOPPLER AV Peak Velocity 221.3 cm/s LVOT Peak Velocity 102.0 cm/s AV Area Cont Eq vti 1.9 cm squared AV Area Cont Eq pk 1.5 cm squared MV Area PHT 3.7 cm squared Mitral E to A Ratio 0.8 MV E' Velocity 36.5 cm/s Mitral E to MV E' Ratio 9.0 Mitral E to LV E' Lateral Ratio 9.8 Mitral E to LV E' Septal Ratio 8.3 TR Peak Velocity 118.0 cm/s TR Peak Gradient 5.6 mmHg RV Acceleration Time 0.1 s RV Ejection Time 0.3 s RV AcT/ET 0.4 FINDINGS Left Ventricle Technically difficult study because of poor ultrasonic windows. Grossly LV systolic function is normal. Regional wall motion abnormalities cannot be assessed because of poor ultrasonic windows. Grade 1 diastolic dysfunction Right Ventricle The right ventricle is grossly normal Right Atrium The right atrium is normal in size. Left Atrium The left atrium is normal in size. Mitral Valve Grossly normal without significant stenosis or prolapse. There is trace mitral regurgitation. Aortic Valve Thickened aortic valve with mild aortic stenosis. By continuity equation, aortic valve area is 1.24 cm squared and mean gradient across aortic valve is 10 mmHg. There is no aortic regurgitation. Tricuspid Valve Grossly normal. No significant regurgitation seen. Insufficient TR jet to calculate RVSP. Pulmonic Valve Not visualized. Pericardium Normal pericardium without effusion. Aorta Normal ascending aorta dimension. CONCLUSIONS Technically difficult study because of poor ultrasonic windows. Grossly LV systolic function is normal. Grade 1 diastolic dysfunction. Trace mitral regurgitation. Mild aortic stenosis. No comparison studies are available Milad Mock MD (Electronically Signed) Final Date: 28 July 2021 12:26 S
--- NOTE | 2021-07-26 21:00 | PC.NURSE ---
Shift Note Frequent safety and comfort rounds continue. Pt had a restful day. Denies any sob or chest pain whole shift. pt had 1 stent to OM post cardiac cath. TR Band off around 11:30 am. No hematoma, bleeding, swelling. right hand is warm. Radial pulse is palpable +3. Pt instructed on activity restrictions post angiogram and to let nurse if he has any concerns. Pt verbalizes understanding. Orders and/or nursing care completed as indicated. Patient monitored for response to intervention and treatment(s). Education provided includes post angiogram. Patient and/or new accounts banking representative verbalizes understanding. Will continue to monitor.
[2021-07-26] MEDS: alum-mag-hydroxide-sime 30 mL UDC PO (21:32)
[2021-07-27] VITALS (12 sets, daily range): BP systolic 112–144; BP diastolic 62–75; PULSE 70–85; RESP 13–20; TEMP 37.7–38.1; O2SAT 93–100
--- NOTE | 2021-07-27 00:24 | PC.NURSE ---
Patient did not have nitro drip running upon my arrival at beginning of shift.
[2021-07-27] MEDS: ondansetron 2 mg/ML SDV 2 mL 4 MG IVP (02:12)
[2021-07-27] MEDS: acetaminophen 325 mg Tablet 650 MG PO ×2 (02:56→18:43)
[2021-07-27 04:23] LABS: Anion Gap 12.5 (5-19); Blood Urea Nitrogen 32 mg/dL (8-23); Calcium 7.3 mg/dL (8.5-10.5); Carbon Dioxide 25 mmol/L (22-29); Chloride 98 mmol/L (98-107); Glomerular Filtration Rate 50.9 mL/min (90-130); Glucose 118 mg/dL (65-115); Osmolality Calculated 280 mOsm/kg (285-295); Potassium 4.5 mmol/L (3.5-5.1); Sodium 131 mmol/L (136-145)
--- NOTE | 2021-07-27 07:29 | P.PN_ITS ---
Subjective Subjective: Interval history: Patient is overall doing well. He still has shortness of breath but says that is chronic and he is on 3 L of oxygen. Underwent successful revascularization of OM with CORNELIO x1. Vitals/I&O/Wt Last Vital Signs Temp 100.5 F H 07/27/21 03:43 Pulse 82 07/27/21 03:21 Resp 16 07/27/21 02:52 BP 112/62 07/27/21 02:52 Pulse Ox 97 07/27/21 02:52 07/26/21 07/27/21 07/27/21 22:59 06:59 14:59 Intake Total 490.875 / 1084.875 300 / 1384.875 Output Total 400 / 600 100 / 700 Balance 90.875 / 484.875 200 / 684.875 Weight last 48 hrs Weight 257 lb 8 oz Weight 268 lb Physical Exam Narrative: EXAM NARRATIVE: GENERAL: Patient is alert, awake and oriented x3. [] NECK: No jugular vein distension. [] HEENT: No cyanosis. No icterus. No pallor. [] HEART: Regular S1 and S2. No murmur, rub or gallop. [] LUNGS: Mild basal crackles ABDOMEN: Soft, nontender and nondistended. Positive bowel sounds. No guarding, rebound or tenderness. [] CENTRAL NERVOUS SYSTEM: Grossly nonfocal. [] EXTREMITIES: Lower extremities with 1+ edema bilaterally. Pulses palpable in the lower extremities, both dorsalis pedis and posterior tibial. [] Data : 07/29/21 05:36 07/29/21 05:36 A&P Assessment and plan (1) Non-ST elevation (NSTEMI) myocardial infarction: Status: Acute (2) COPD (chronic obstructive pulmonary disease): Status: Acute (3) Hypertension: Status: Acute Qualifiers: Hypertension type: primary hypertension Qualified Code(s): I10 - Essential (primary) hypertension (4) Hypertension: Status: Acute (5) MARILEE (acute kidney injury): Status: Acute Patient underwent coronary angiogram today that showed severe 90% stenosis of OM1 that was treated with CORNELIO x1. Continue aspirin and Plavix High intensity statin therapy. Echocardiogram showed grossly normal LV systolic function and grade 1 diastolic dysfunction. Patient has developed MARILEE. Will need IV fluid resuscitation for now Thank you for involving us with care of this patient. We will continue to follow. Please call with questions. Attestations Medical Necessity Statement*: Care expected to cross 2 midnights Coding Level of Care Code Acute Critical Care Nurse Specialist for Gladys Quezada Diagnoses Non-ST elevation (NSTEMI) myocardial infarction I21.4 COPD (chronic obstructive pulmonary disease) J44.9 Hypertension I10 Hypertension type: primary hypertension Hypertension I10 MARILEE (acute kidney injury) N17.9
[2021-07-27 08:44] LABS: NT Pro B Type Natriuretic Pept 263 pg/mL (0-125)
[2021-07-27] MEDS: atorvastatin 40 mg Tablet PO (08:48)
[2021-07-27] MEDS: FUROsemide 20 mg Tablet PO (08:49)
[2021-07-27] MEDS: aspirin 81 mg EC Tablet PO (08:49)
[2021-07-27] MEDS: amlodipine 10 mg Tablet PO (08:49)
[2021-07-27] MEDS: sennosides-docusate Tablet 1 TAB PO (08:49)
[2021-07-27] MEDS: metoprolol succinate ER (24 HR) 25 mg Tablet PO (08:49)
[2021-07-27] MEDS: clopidogrel 75 mg Tablet PO (08:50)
--- NOTE | 2021-07-27 09:00 | PC.NURSE ---
Pt lying in bed resting and communicating with nurse. Resp even and non-labored no distress or sob noted. Pts O2 sat 97% on 1.5 Lpm via NC. Pt had no c/o chest pain or discomfort at the present time. No needs voiced. Call light in reach. Will cont to monitor.
--- NOTE | 2021-07-27 11:55 | PM.PN ---
Subjective Subjective: Interval history: Status post cath, creatinine 1.4 We will monitor 1 more day Low-grade fever, repeat chest x-ray, his COVID-19 was negative on admission Vitals/I&O/Wt Last Vital Signs Temp 100.5 F H 07/27/21 03:43 Pulse 75 07/27/21 11:53 Resp 19 H 07/27/21 11:53 BP 144/75 07/27/21 11:53 Pulse Ox 100 07/27/21 11:53 07/26/21 07/27/21 07/27/21 22:59 06:59 14:59 Intake Total 490.875 / 1084.875 300 / 1384.875 250 / 250 Output Total 400 / 600 100 / 700 275 / 275 Balance 90.875 / 484.875 200 / 684.875 -25 / -25 Weight last 48 hrs Weight 116.8 kg Weight 121.563 kg Physical Exam Narrative: EXAM NARRATIVE: Clinical signs of Dehydration with dry mucous membranes S1, S2 Abdomen soft Lower extremity no edema Saturating well on 1 to 1.5 L No active chest pain or shortness of breath EOMI, PERRLA Nonfocal neuro exam Data : 07/26/21 03:38 07/27/21 03:46 A&P Assessment and plan (1) Hypertension: Status: Acute (2) Hypertensive emergency: Status: Acute (3) Non-ST elevation (NSTEMI) myocardial infarction: Status: Acute (4) Unstable angina: Status: Acute (5) COPD (chronic obstructive pulmonary disease): Status: Acute (6) Hypertension: Status: Acute Qualifiers: Hypertension type: primary hypertension Qualified Code(s): I10 - Essential (primary) hypertension Additional A&P Information Cardiac cath postop day 1 for NSTEMI Patient is febrile Worsening creatinine COVID-19 negative BNP 263 Started IV fluids for MARILEE rule out contrast-induced nephropathy MARILEE seems prerenal, dehydration versus TONY Requested urine sodium and creatinine Full code Cardiac diet DVT prophylaxis: On board For febrile episode we will request chest x-ray, blood culture, urinalysis Patient is still requiring 1 to 1.5 L of oxygen, patient stating that he normally uses oxygen at night at home Attestations Medical Necessity Statement*: Discharge tomorrow Time Spent in Patient Care: (>than 50% of time spent in counselling and/or direct pt care on unit). Coding Level of Care Code Acute Associate Biological Sales for Chg Fwd Diagnoses Hypertension I10 Hypertensive emergency I16.1 Non-ST elevation (NSTEMI) myocardial infarction I21.4 Unstable angina I20.0 COPD (chronic obstructive pulmonary disease) J44.9 Hypertension I10 Hypertension type: primary hypertension
--- NOTE | 2021-07-27 12:03 | XRR_ITS ---
PROCEDURE INFORMATION: Exam: XR Chest Exam date and time: 07/27/2021 12:03 PM Age: 65 years old Clinical indication: Shortness of breath; Additional info: Hypoxia and febrile TECHNIQUE: Imaging protocol: XR of the chest. Views: 1 view. COMPARISON: CR XR chest 1V portable [id number] 07/25/2021 12:48 PM FINDINGS: Lungs: There is a patchy airspace opacity in the right lung base, in association with indistinctness of the right hemidiaphragm, concerning for pneumonia. Pleural spaces: Unremarkable. No pleural effusion. No pneumothorax. Heart/Mediastinum: Stable cardiomediastinal silhouette. Bones/joints: Unremarkable. XR/XR chest 1V portable [id number] IMPRESSION: Imaging findings of right lower lobe pneumonia. Radiation Dose CTDIVOL = (mGy): DLP = (mGy-cm)
[2021-07-27] MEDS: sodium chloride 0.9% 1,000 ML 100 ML IV ×2 (13:44→20:26)
[2021-07-27 15:15] LABS: Add Urine Culture? Yes; Add Urine Microscopic? YES; Bacteria Urine TRACE /hpf; Bilirubin Urine Neg (Negative); Blood Urine 2+ (Negative); Glucose Urine UA Norm (Normal); Ketones Urine Negative (Negative); Leukocyte Esterase Urine Negative (Negative); Nitrate Urine Negative (Negative); Protein Urine Neg (Negative); RBC Urine 15-25 /hpf (0-2); Specific Gravity, Urine 1.015 (1.005-1.030); Squamous Epithelial Cell Urine 0-4 /hpf (0-5); Urine Appearance Clear (CLEAR); Urine Color Yellow (Yellow); Urobilinogen Urine Norm (Negative); WBC Urine 0-4 /hpf (0-5); pH Urine 5 (5-7)
[2021-07-27 15:31] LABS: Urine Random Sodium 86 mmol/L
[2021-07-27 15:36] LABS: Creatinine Urine, Random 93 mg/dL (39-259)
[2021-07-27 15:37] LABS: Microalbum Creatinine Ratio Ur 11 mg/dL (0-20)
[2021-07-27 15:38] LABS: Microalbumin Random Urine < 1 ug/dL (0-20)
[2021-07-27] MEDS: hyDRALAzine 10 mg Tablet PO ×2 (16:04→19:46)
--- NOTE | 2021-07-27 19:58 | PC.NURSE ---
Patient received Tylenol for headache. Patient has fever. Cool wrags will be applied to patient. Will continue to monitor.
[2021-07-27] MEDS: morphine IR 15 mg Tablet PO (20:26)
[2021-07-28] VITALS (16 sets, daily range): BP systolic 131–155; BP diastolic 59–91; PULSE 72–87; RESP 14–24; TEMP 37.1–37.8; O2SAT 87–98
[2021-07-28 05:40] LABS: Hematocrit 37.4 % (42.0-52.0); Hemoglobin 12.1 g/dL (11.7-16.6); Lymphocytes # 0.5 10^3/uL (0.8-4.8); Lymphocytes % 9.4 %; Mean Corpuscular HGB Conc 32.4 g/dL (30.0-36.0); Mean Corpuscular Hemoglobin 28.6 pg (28.0-34.0); Mean Corpuscular Volume 88.4 fl (80-94); Mean Platelet Volume 9.9 fL (7.4-10.4); Monocytes # 0.3 10^3/uL (0.2-0.9); Monocytes % 5.5 %; Neutrophils # 4.75 10^3/uL (1.8-7.7); Neutrophils % 84.7 %; Nucleated Red Blood Cells % 0 %; Platelet Count 169 10^3/cmm (130-400); Red Blood Count 4.23 10^6/uL (4.1-5.3); Red Cell Distribution Width 13.2 % (12.1-15.1); White Blood Count 5.6 10^3/uL (4.0-10.0)
[2021-07-28] MEDS: acetaminophen 325 mg Tablet 650 MG PO ×2 (05:40→23:23)
--- NOTE | 2021-07-28 05:42 | PC.NURSE ---
Patient c/o body aches. PRN Tylenol given per patient request.
[2021-07-28 06:12] LABS: Anion Gap 13.5 (5-19); Blood Urea Nitrogen 19 mg/dL (8-23); Calcium 7.4 mg/dL (8.5-10.5); Carbon Dioxide 25 mmol/L (22-29); Chloride 97 mmol/L (98-107); Glucose 106 mg/dL (65-115); Osmolality Calculated 275 mOsm/kg (285-295); Potassium 4.5 mmol/L (3.5-5.1); Sodium 131 mmol/L (136-145)
--- NOTE | 2021-07-28 07:31 | PC.NURSE ---
Pt lying in bed resting with eyes closed. Resp even and non-labored no distress or sob noted. Pt had no c/o pain or discomfort at the present time. No needs voiced. Call light in reach. Will cont to monitor.
--- NOTE | 2021-07-28 08:18 | P.PN_ITS ---
Subjective Subjective: Interval history: Patient had febrile episode. Is now pending Covid PCR. On Antibiotics per primary team. Kidney function has normalized. Vitals/I&O/Wt Last Vital Signs Temp 98.8 F 07/28/21 07:39 Pulse 82 07/28/21 07:39 Resp 16 07/28/21 07:39 BP 134/70 07/28/21 07:39 Pulse Ox 98 07/28/21 07:39 07/27/21 07/28/21 07/28/21 22:59 06:59 14:59 Intake Total 670 / 920 300 / 1220 Output Total 250 / 1200 1075 / 2275 Balance 420 / -280 -775 / -1055 Physical Exam Narrative: EXAM NARRATIVE: GENERAL: Patient is alert, awake and oriented x3. [] NECK: No jugular vein distension. [] HEENT: No cyanosis. No icterus. No pallor. [] HEART: Regular S1 and S2. No murmur, rub or gallop. [] LUNGS: Mild basal crackles ABDOMEN: Soft, nontender and nondistended. Positive bowel sounds. No guarding, rebound or tenderness. [] CENTRAL NERVOUS SYSTEM: Grossly nonfocal. [] EXTREMITIES: Lower extremities with 1+ edema bilaterally. Pulses palpable in the lower extremities, both dorsalis pedis and posterior tibial. [] Data : 07/29/21 05:36 07/29/21 05:36 Micro: Microbiology 07/27/21 13:11 Blood Culture - Preliminary Blood SPECIMEN COLLECTED 07/27/21 13:09 Blood Culture - Preliminary Blood SPECIMEN COLLECTED A&P Assessment and plan (1) Non-ST elevation (NSTEMI) myocardial infarction: Status: Acute (2) COPD (chronic obstructive pulmonary disease): Status: Acute (3) Hypertension: Status: Acute Qualifiers: Hypertension type: primary hypertension Qualified Code(s): I10 - Essential (primary) hypertension (4) Hypertension: Status: Acute (5) MARILEE (acute kidney injury): Status: Acute Patient underwent coronary angiogram today that showed severe 90% stenosis of OM1 that was treated with CORNELIO x1. Continue aspirin and Plavix High intensity statin therapy. Echocardiogram showed grossly normal LV systolic function and grade 1 diastolic dysfunction. MARILEE has resolved. Patient was febrile and is getting antibiotics per primary team. Covid PCR is pending. Thank you for involving us with care of this patient. We will continue to follow. Please call with questions. Attestations Medical Necessity Statement*: Care expected to cross 2 midnights. Coding Level of Care Code Acute Passenger Vessel Chef for Gladys Quezada Diagnoses Non-ST elevation (NSTEMI) myocardial infarction I21.4 COPD (chronic obstructive pulmonary disease) J44.9 Hypertension I10 Hypertension type: primary hypertension Hypertension I10 MARILEE (acute kidney injury) N17.9
[2021-07-28] MEDS: levofloxacin-dextrose 5 % 750 MG/150 ML PREMIX 100 MG IV (08:33)
[2021-07-28] MEDS: aspirin 81 mg EC Tablet PO (08:33)
[2021-07-28] MEDS: atorvastatin 40 mg Tablet PO (08:33)
[2021-07-28] MEDS: sennosides-docusate Tablet 1 TAB PO (08:33)
[2021-07-28] MEDS: clopidogrel 75 mg Tablet PO (08:34)
[2021-07-28] MEDS: metoprolol succinate ER (24 HR) 25 mg Tablet PO (08:34)
[2021-07-28] MEDS: hyDRALAzine 10 mg Tablet PO ×3 (08:34→20:46)
[2021-07-28] MEDS: amlodipine 10 mg Tablet PO (08:34)
--- NOTE | 2021-07-28 10:16 | PC.SOCIAL ---
Pg 2 IMM Explained to pt IMM. No questions voiced. Provided pt a copy. Initialed, dated, & timed a copy & placed in chart.
--- NOTE | 2021-07-28 12:25 | PM.PN ---
Subjective Subjective: Interval history: Patient was seen and examined this morning, patient very fatigued lethargic stating that his sister is suffering from COVID-19, Covid PCR is pending, febrile episodes noted, right lower lobe pneumonia He is not aspirating, able tolerate his diet no active shortness of breath or chest pain Only requiring 1 L of oxygen, no active diarrhea Vitals/I&O/Wt Last Vital Signs Temp 98.8 F 07/28/21 07:39 Pulse 82 07/28/21 07:39 Resp 16 07/28/21 07:39 BP 134/70 07/28/21 07:39 Pulse Ox 96 07/28/21 10:15 07/27/21 07/28/21 07/28/21 22:59 06:59 14:59 Intake Total 670 / 920 300 / 1220 360 / 360 Output Total 250 / 1200 1075 / 2275 Balance 420 / -280 -775 / -1055 360 / 360 Physical Exam Narrative: EXAM NARRATIVE: Fatigued lethargic male Laying comfortably without any active shortness of breath or chest pain No conversational dyspnea 1 L nasal cannula Abdomen soft visceral obesity S1, S2 EOMI, PERRLA Nonfocal neuro exam No audible stridor or wheezing Data : 07/28/21 05:27 07/28/21 05:27 Micro: Microbiology 07/27/21 13:11 Blood Culture - Preliminary Blood SPECIMEN COLLECTED 07/27/21 13:09 Blood Culture - Preliminary Blood SPECIMEN COLLECTED A&P Assessment and plan (1) Hypertension: Status: Acute (2) Hypertensive emergency: Status: Acute (3) Fever: Status: Acute (4) Right lower lobe pneumonia: Status: Acute Additional A&P Information Febrile episodes Right lower lobe pneumonia Currently requiring 1 L nasal cannula Covid PCR is pending, antigen is negative Start Levaquin PT evaluation Hypertensive emergency: Resolved Resume lisinopril which was held secondary to MARILEE MARILEE related to dehydration: Improved with IV fluid hydration, no signs of contrast-induced nephropathy, EF preserved ejection fraction, clinically no sign of fluid overload NSTEMI: Status post stent continue dual antiplatelet therapy Plan to discharge after Covid results Cardiac diet DVT prophylaxis on board Attestations Medical Necessity Statement*: Anticipating discharge once Covid result come back Time Spent in Patient Care: 16 - 35 minutes Coding Level of Care Code Acute Residential Support Worker for Chg Fwd Diagnoses Hypertension I10 Hypertensive emergency I16.1 Fever R50.9 Right lower lobe pneumonia J18.9
[2021-07-28] MEDS: ondansetron 2 mg/ML SDV 2 mL 4 MG IVP (15:24)
[2021-07-28] MEDS: morphine IR 15 mg Tablet PO ×2 (15:38→20:46)
[2021-07-28 17:42] LABS: Quest SARS-CoV-2 RNA DETECTED (NOT DETECTED)
--- NOTE | 2021-07-28 19:06 | PC.NURSE ---
Received report from JEIMY Martinez. Patient resting in bed. Informed patient of positive COVID result. Patient expressed disappointment but completely understands. Patient currently on 3L NC. Patient has no appetite and refused supper. Denies pain presently. Patient stated, I just don't feel well at all. No other distresses observed. Will continue to monitor.
[2021-07-28] MEDS: dexamethasone 4 mg/mL INJ 6 MG IVP (22:58)
[2021-07-28] MEDS: remdesivir 200 MG in sodium chloride 0.9% (100 ml) 100 ML 100 MG IV (22:58)
[2021-07-29] VITALS (11 sets, daily range): BP systolic 109–138; BP diastolic 56–77; PULSE 60–82; RESP 14–21; TEMP 36.4–37.1; O2SAT 93–100
--- NOTE | 2021-07-29 05:49 | PC.NURSE ---
Shift Note Frequent safety and comfort rounds continue. Orders and/or nursing care completed as indicated. Patient monitored for response to intervention and treatment(s). Education provided includes Decadron and remdesivir. Patient verbalized complete understanding. Patient decreased to normal this morning last being 98.1F orally. Patient expressed desire to go home today. Dr Lopes was notified. Will continue to monitor.
[2021-07-29 05:52] LABS: Hematocrit 37.1 % (42.0-52.0); Hemoglobin 12.2 g/dL (11.7-16.6); Lymphocytes # 0.3 10^3/uL (0.8-4.8); Lymphocytes % 4.7 %; Mean Corpuscular HGB Conc 32.9 g/dL (30.0-36.0); Mean Corpuscular Hemoglobin 28.8 pg (28.0-34.0); Mean Corpuscular Volume 87.5 fl (80-94); Mean Platelet Volume 9.7 fL (7.4-10.4); Monocytes # 0.2 10^3/uL (0.2-0.9); Monocytes % 3.4 %; Neutrophils # 6.19 10^3/uL (1.8-7.7); Neutrophils % 91.5 %; Nucleated Red Blood Cells % 0 %; Platelet Count 160 10^3/cmm (130-400); Red Blood Count 4.24 10^6/uL (4.1-5.3); Red Cell Distribution Width 12.8 % (12.1-15.1); White Blood Count 6.8 10^3/uL (4.0-10.0)
[2021-07-29 06:05] LABS: D Dimer 1.05 ug/mIFEU (0-0.59)
[2021-07-29 06:19] LABS: Anion Gap 17.9 (5-19); Blood Urea Nitrogen 15 mg/dL (8-23); Calcium 7.9 mg/dL (8.5-10.5); Carbon Dioxide 22 mmol/L (22-29); Chloride 96 mmol/L (98-107); Glucose 148 mg/dL (65-115); Osmolality Calculated 276 mOsm/kg (285-295); Potassium 4.9 mmol/L (3.5-5.1); Procalcitonin 0.14 ng/mL (0-0.5); Sodium 131 mmol/L (136-145)
[2021-07-29] MEDS: lisinopril 20 mg Tablet PO (09:56)
[2021-07-29] MEDS: clopidogrel 75 mg Tablet PO (09:56)
[2021-07-29] MEDS: aspirin 81 mg EC Tablet PO (09:56)
[2021-07-29] MEDS: metoprolol succinate ER (24 HR) 25 mg Tablet PO (09:56)
[2021-07-29] MEDS: amlodipine 10 mg Tablet PO (09:56)
[2021-07-29] MEDS: sennosides-docusate Tablet 1 TAB PO (09:56)
[2021-07-29] MEDS: hyDRALAzine 10 mg Tablet PO (09:56)
[2021-07-29] MEDS: atorvastatin 40 mg Tablet PO (09:56)
--- NOTE | 2021-07-29 11:18 | PM.PN ---
Subjective Subjective: Interval history: Status post drug-eluting stent OM 1 on 07/25 After the procedure he was spiking fever, requested Covid PCR which returned positive on 07/28, started remdesivir and Decadron, patient states that his sister is sick His symptoms started around Thanksgiving 08/18 symptoms started Currently doing well on 3 L cannula Very fatigued lethargic He did receive nitroglycerin drip before cardiac cath however blood pressure improved after addition of oral antihypertensive regimen His creatinine was also high after the procedure which improved with IV fluids, this was most likely dehydration related contrast-induced nephropathy ruled out Vitals/I&O/Wt Last Vital Signs Temp 97.8 F 07/29/21 10:13 Pulse 82 07/29/21 10:13 Resp 15 07/29/21 10:13 BP 123/77 07/29/21 10:13 Pulse Ox 98 07/29/21 10:13 07/28/21 07/29/21 07/29/21 22:59 06:59 14:59 Intake Total 1150 / 1510 200 / 1710 Output Total 450 / 450 550 / 1000 500 / 500 Balance 700 / 1060 -350 / 710 -500 / -500 Physical Exam Narrative: EXAM NARRATIVE: Patient is doing well on 3 L nasal cannula no conversational dyspnea Hypoxia doing well on 3 L Abdomen soft Distended with obesity Nonfocal neuro exam S1, S2 no signs of active heart failure EOMI, PERRLA Data : 07/29/21 05:36 07/29/21 05:36 Micro: Microbiology 07/27/21 13:50 Urine Culture - Final Urine,Clean Catch 07/27/21 13:11 Blood Culture - Preliminary Blood NEGATIVE TO DATE 07/27/21 13:09 Blood Culture - Preliminary Blood NEGATIVE TO DATE A&P Assessment and plan (1) Right lower lobe pneumonia: Status: Acute (2) Fever: Status: Acute (3) Hypertension: Status: Acute (4) Hypertensive emergency: Status: Acute (5) Non-ST elevation (NSTEMI) myocardial infarction: Status: Acute (6) Unstable angina: Status: Acute (7) COVID: Status: Acute (8) Acute respiratory failure with hypoxia: Status: Acute Additional A&P Information NSTEMI status post stent obtuse marginal on 07/25 Patient is symptom-free now Continue dual antiplatelet therapy Preserved ejection fraction without active signs of heart failure Hypertensive emergency: Received nitroglycerin drip at the time of admission, blood pressure is controlled with p.o. antihypertensive regimen Lisinopril, amlodipine, metoprolol succinate, will discontinue hydralazine If needed optimize lisinopril to 40 mg if he stays hypertensive Covid +12/4, acute hypoxia without respiratory failure, doing well on 3 to nasal cannula no conversational dyspnea No acute respite distress If patient is able to maintain his O2 saturation on ambulation he might get discharged in next 48 hours Patient will need to quarantine for next 10 days at home MARILEE: Resolved with IV fluids no signs of contrast-induced nephropathy Cardiac diet Full code DVT prophylaxis on board Plan to discharge in next 48 hours Attestations Medical Necessity Statement*: in Next 48 hours most likely will be discharged home Time Spent in Patient Care: less than 15 minutes Coding Level of Care Code Acute Sharepoint Solutions Developer for Gladys Fwd Diagnoses Right lower lobe pneumonia J18.9 Fever R50.9 Hypertension I10 Hypertensive emergency I16.1 Non-ST elevation (NSTEMI) myocardial infarction I21.4 Unstable angina I20.0 COVID U07.1 Acute respiratory failure with hypoxia J96.01
[2021-07-29] MEDS: enoxaparin 40 mg/0.4 mL Syringe SUBCUT (12:13)
[2021-07-29] MEDS: remdesivir 100 MG in sodium chloride 0.9% (100 ml) 100 ML IV (18:37)
--- NOTE | 2021-07-29 20:05 | PC.NURSE ---
Shift Note Frequent safety and comfort rounds continue. Orders and/or nursing care completed as indicated. Patient monitored for response to intervention and treatment(s). Education provided includes pneumonia stoplight ambulation, reinforcement on importance of using IS and flutter valve. Patient and/or patient account representative verbalizes understanding. Will continue to monitor.
--- NOTE | 2021-07-29 20:44 | PC.NURSE ---
Received report from JEIMY Loera. Patient resting in bed. Appears in better spirits this evening. Patient agreeable to stay for further treatment of covid dx. Patient denies pain presently. No other distress observed. Will continue to monitor.
[2021-07-29] MEDS: dexamethasone 4 mg/mL INJ 6 MG IVP (21:46)
[2021-07-30 03:54] VITALS: BP 137/70; PULSE 61; RESP 14; TEMP 36.6; O2SAT 98
[2021-07-30 03:56] VITALS: PULSE 54
--- NOTE | 2021-07-30 05:00 | PC.NURSE ---
Shift Note Frequent safety and comfort rounds continue. Orders and/or nursing care completed as indicated. Patient monitored for response to intervention and treatment(s). Education provided includes dexamethasone. Patient verbalized complete understanding. Patient does report brief episode of nausea with dexamethasone administration stating, I got sick to my stomach with the last dose I received. Denies emesis with each dose. No other complaints through the night. Reports sleeping well. No distress observed. Will continue to monitor.
[2021-07-30 06:08] LABS: Basophils % 0.1 %; Hematocrit 37.9 % (42.0-52.0); Hemoglobin 12.1 g/dL (11.7-16.6); Lymphocytes # 0.5 10^3/uL (0.8-4.8); Lymphocytes % 5.3 %; Mean Corpuscular HGB Conc 31.9 g/dL (30.0-36.0); Mean Corpuscular Hemoglobin 28.9 pg (28.0-34.0); Mean Corpuscular Volume 90.7 fl (80-94); Mean Platelet Volume 11.2 fL (7.4-10.4); Monocytes # 0.2 10^3/uL (0.2-0.9); Monocytes % 2.3 %; Neutrophils # 7.96 10^3/uL (1.8-7.7); Neutrophils % 91.7 %; Nucleated Red Blood Cells % 0 %; Platelet Count 159 10^3/cmm (130-400); Red Blood Count 4.18 10^6/uL (4.1-5.3); Red Cell Distribution Width 12.9 % (12.1-15.1); White Blood Count 8.7 10^3/uL (4.0-10.0)
[2021-07-30 06:35] LABS: Anion Gap 18.8 (5-19); Blood Urea Nitrogen 29 mg/dL (8-23); Calcium 7.8 mg/dL (8.5-10.5); Carbon Dioxide 18 mmol/L (22-29); Chloride 100 mmol/L (98-107); Glomerular Filtration Rate 84.7 mL/min (90-130); Glucose 143 mg/dL (65-115); Osmolality Calculated 282 mOsm/kg (285-295); Potassium 4.8 mmol/L (3.5-5.1); Sodium 132 mmol/L (136-145)
[2021-07-30 06:40] LABS: Procalcitonin 0.12 ng/mL (0-0.5)
[2021-07-30 06:47] LABS: Slide Review Slide Review Perform
[2021-07-30] MEDS: clopidogrel 75 mg Tablet PO (08:22)
[2021-07-30] MEDS: atorvastatin 40 mg Tablet PO (08:22)
[2021-07-30] MEDS: metoprolol succinate ER (24 HR) 25 mg Tablet PO (08:22)
[2021-07-30] MEDS: lisinopril 20 mg Tablet PO (08:22)
[2021-07-30] MEDS: sennosides-docusate Tablet 1 TAB PO (08:23)
[2021-07-30] MEDS: aspirin 81 mg EC Tablet PO (08:23)
[2021-07-30] MEDS: amlodipine 10 mg Tablet PO (08:23)
[2021-07-30 08:32] VITALS: BP 129/75; PULSE 79; RESP 18; TEMP 36.6; O2SAT 94
[2021-07-30 08:50] VITALS: PULSE 65; RESP 18; O2SAT 97
[2021-07-30] MEDS: ipratropium-albuterol 3 mL Neb INHALATION (08:50)
--- NOTE | 2021-07-30 10:11 | PC.SOCIAL ---
IMM Update Pg. 2 of IMM updated and reviewed with patient. Copy provided.
--- NOTE | 2021-07-30 10:20 | PC.CHAP ---
Pastoral Care Encounter/Spiritual Assessment Type of Contact [] Declined citrus fruit colorer visit [] Patient/Family/Request visit [] Outpatient visit [] Follow-up visit [] Physician referral [] Code/Alert [x] Routine visit [] Staff referral [] Actively dying [] Patient sleeping [] Family support [] [] Out of room [] Palliative care [] [] Receiving care in room [] Pre-surgical visit [] Trauma [] Long length of stay [] ICU visit [x] Other: isolated Relational/Emotional Strength [] Patient feels connected with others/family/visitors/staff [] Distress [] Loneliness/isolation [] Abandonment Spirituality of Patient [] Person of Cindy [] Attends Mormonism of their Cindy [] Believes in Prayer [] Reads Bible or Presybeterian materials [] There are Spiritual issues to be addressed Dog Obedience Instructor Interventions [x] Prayer [] Active listening [] Non-anxious presence [] Spiritual/emotional support [] Crisis/trauma care [] Spiritual counseling [] Bereavement support [] Provided bereavement packet [] Provided Bible/devotional materials [] Provided toy/stuffed animal, coloring book to patient or family member [] Provided Communion [] Anointing/Amory [] Salvation [x] Completed spiritual assessment [] Other: Impact on Illness or Injury [] Angry [] Fearful [] Anxious [] Often cries [] Exhaustion [] Unable to work [] Unable to attend nondenominational [] Unable to walk/stand [] Unable to read [] Unable to drive [] Unable to eat/drink [] Unable to sleep [] Unable to be with family [] Patient intubated [] Other: Summary Time spent with patient
--- NOTE | 2021-07-30 11:24 | PM.DCS ---
Discharge Providers Date of Admission: 07/25/21 15:10 Date of Discharge: July 30, 2021 Attending Provider at Admission: Yahir Lopes MD Attending Provider at Discharge: Estrellita Cardoso MD Primary Care Provider: ELLIOT Coreas Diagnoses at Discharge Discharge Diagnosis (1) Non-ST elevation (NSTEMI) myocardial infarction: Status: Acute (2) COPD (chronic obstructive pulmonary disease): Status: Acute (3) Hypertension: Status: Acute Qualifiers: Hypertension type: primary hypertension Qualified Code(s): I10 - Essential (primary) hypertension (4) Hypertension: Status: Acute (5) MARILEE (acute kidney injury): Status: Acute Reason for Visit Reason for Visit: CP: SEEN DR VELAZQUEZ YESTERDAY Discharge Data Data Completed and Pending: Completed Studies During Hospitalization Category Date Time Status DRIVE IN THEATER ATTENDANT request for service Routin e Exams 07/26/21 05:37 Completed XR chest 1V duane ble [id number] Stat Exams 07/27/21 12:03 Completed XR chest 1V duane ble [id number] Urgent Exams 07/25/21 12:42 Completed CV. echo complete * [id number] Routine Ultrasound 07/26/21 19:05 Completed Pending at discharge Category Date Time Status Blood Culture Sta t Lab 07/27/21 13:11 Results Sputum Culture an d Gram Stain Routi ne Lab 07/27/21 12:03 Uncollected Labs from last 24 hours 07/30/21 07/30/21 05:12 05:12 WBC 8.7 RBC 4.18 Hgb 12.1 Hct 37.9 L MCV 90.7 MCH 28.9 MCHC 31.9 RDW 12.9 Plt Count 159 MPV 11.2 H Neut % (Auto) 91.7 Lymph % (Auto) 5.3 Mcintosh % (Auto) 2.3 Eos % (Auto) 0.0 Baso % (Auto) 0.1 Neut # (Auto) 7.96 H Lymph # (Auto) 0.5 L Mcintosh # (Auto) 0.2 Eos # (Auto) 0.0 Baso # (Auto) 0.0 Nucleated RBC % (a uto) 0 Nucleated RBCs # 0.0 Sodium 132 L Potassium 4.8 Chloride 100 Carbon Dioxide 18 L Anion Gap 18.8 BUN 29 H Creatinine 0.9 GFR Calculation 84.7 L Glucose 143 H Calculated Osmolal ity 282 L Calcium 7.8 L Procalcitonin 0.12 Vitals: Last Vital Signs Temp 97.9 F 07/30/21 08:32 Pulse 65 07/30/21 08:50 Resp 18 07/30/21 08:50 BP 129/75 07/30/21 08:32 Pulse Ox 97 07/30/21 08:50 Discharge Plan Discharge Condition: Stable Prescriptions: No Action Trelegy Ellipta 100-62.5-25 mcg blister with device 1 inh inhalation Q24H RF: 0 atorvastatin 40 mg tablet 40 mg PO DAILY RF: 0 clopidogrel 75 mg tablet 75 mg PO DAILY RF: 0 metoprolol succinate 25 mg tablet extended release 24 hr 25 mg PO DAILY RF: 0 Aspir-81 81 mg Tablet,Delayed Release (Dr/Ec) 81 mg PO DAILY RF: 0 Tylenol Ex Str Rapid Release 500 mg Tablet 1,000 mg PO Q4H PRN (Reason: Pain) RF: 0 Aleve 220 mg Tablet 660 - 880 mg PO Q12H PRN (Reason: Pain) RF: 0 Referrals: Ramirez Martinez FNP [Primary Care Provider] - Coding Level of Care Code Acute [facility] note Diagnoses Non-ST elevation (NSTEMI) myocardial infarction I21.4 COPD (chronic obstructive pulmonary disease) J44.9 Hypertension I10 Hypertension type: primary hypertension Hypertension I10 MARILEE (acute kidney injury) N17.9
--- NOTE | 2021-07-30 11:32 | PM.DCS ---
Discharge Providers Date of Admission: 07/25/21 15:10 Date of Discharge: July 30, 2021 Attending Provider at Admission: Yahir Lopes MD Attending Provider at Discharge: Estrellita Cardoso MD Primary Care Provider: ELLIOT Coreas Diagnoses at Discharge Discharge Diagnosis (1) Non-ST elevation (NSTEMI) myocardial infarction: Status: Acute (2) COPD (chronic obstructive pulmonary disease): Status: Acute (3) Hypertension: Status: Acute Qualifiers: Hypertension type: primary hypertension Qualified Code(s): I10 - Essential (primary) hypertension (4) Hypertension: Status: Acute (5) MARILEE (acute kidney injury): Status: Acute Reason for Visit Reason for Visit: CP: SEEN DR VELAZQUEZ YESTERDAY Hospital Course Hospital Course 65-year-old male who was admitted for evaluation of chest pain, NSTEMI. At the time of admission he had hypertensive emergency for which he required nitroglycerin drip, his blood pressure improved after angioplasty. Dr. Mock did cardiac catheterization via right radial artery. Status post stent placement CORNELIO x1 OM1. Patient symptoms improved. After the procedure patient was spiking fever for which chest x-ray, urine blood culture requested along Covid PCR. Right lower lobe pneumonia, he was started on Levaquin. Covid PCR positive, he was started on remdesivir and Decadron,. His hypoxia did not worsen in 72 hours, patient was eager to return home on 07/30, qualified for 3 L of oxygen with home O2 evaluation. He was discharged home on aspirin, Plavix, high-dose statins, metoprolol succinate and lisinopril. We will send refills for his inhalers and add rescue inhaler albuterol. Follow-up with Capri Mcgill in 2 weeks after he is done with his quarantine. His symptoms started on 07/19. Need to quarantine for at least 21 days. He did develop MARILEE after the procedure which improved with IV fluid hydration. No signs of contrast-induced nephropathy. Physical Exam Narrative: EXAM NARRATIVE: male Doing well on 2 to 3 L nasal cannula S1, S2 sinus rhythm Clinically euvolemic Abdomen soft Nonfocal neuro exam EOMI, PERRLA Discharge Data Data Completed and Pending: Completed Studies During Hospitalization Category Date Time Status MERCHANDISE PICKUP/RECEIVING ASSOCIATE request for service Routin e Exams 07/26/21 05:37 Completed XR chest 1V duane ble [id number] Stat Exams 07/27/21 12:03 Completed XR chest 1V duane ble [id number] Urgent Exams 07/25/21 12:42 Completed CV. echo complete * [id number] Routine Ultrasound 07/26/21 19:05 Completed Pending at discharge Category Date Time Status Blood Culture Sta t Lab 07/27/21 13:11 Results Sputum Culture an d Gram Stain Routi ne Lab 07/27/21 12:03 Uncollected Labs from last 24 hours 07/30/21 07/30/21 05:12 05:12 WBC 8.7 RBC 4.18 Hgb 12.1 Hct 37.9 L MCV 90.7 MCH 28.9 MCHC 31.9 RDW 12.9 Plt Count 159 MPV 11.2 H Neut % (Auto) 91.7 Lymph % (Auto) 5.3 Mason % (Auto) 2.3 Eos % (Auto) 0.0 Baso % (Auto) 0.1 Neut # (Auto) 7.96 H Lymph # (Auto) 0.5 L Mason # (Auto) 0.2 Eos # (Auto) 0.0 Baso # (Auto) 0.0 Nucleated RBC % (a uto) 0 Nucleated RBCs # 0.0 Sodium 132 L Potassium 4.8 Chloride 100 Carbon Dioxide 18 L Anion Gap 18.8 BUN 29 H Creatinine 0.9 GFR Calculation 84.7 L Glucose 143 H Calculated Osmolal ity 282 L Calcium 7.8 L Procalcitonin 0.12 Vitals: Last Vital Signs Temp 97.9 F 07/30/21 08:32 Pulse 65 07/30/21 08:50 Resp 18 07/30/21 08:50 BP 129/75 07/30/21 08:32 Pulse Ox 97 07/30/21 08:50 Discharge Plan Discharge Patient Disposition: Home Condition: Stable Prescriptions: New albuterol sulfate 90 mcg/actuation HFA aerosol inhaler 1 inh inhalation Q6H Qty: 8.5 RF: 3 lisinopril 10 mg tablet 10 mg PO DAILY Qty: 60 RF: 3 amlodipine 10 mg tablet 10 mg PO DAILY Qty: 30 RF: 3 Continued clopidogrel 75 mg tablet 75 mg PO DAILY Qty: 60 RF: 7 aspirin 81 mg Tablet,Delayed Release (Dr/Ec) 81 mg PO DAILY Qty: 30 RF: 11 metoprolol succinate 25 mg tablet extended release 24 hr 25 mg PO DAILY Qty: 60 RF: 4 Trelegy Ellipta 100-62.5-25 mcg blister with device 1 inh inhalation Q24H Qty: 1 RF: 3 Changed atorvastatin 40 mg tablet 80 mg PO DAILY Qty: 30 RF: 11 acetaminophen 500 mg Tablet 500 mg PO Q4H PRN (Reason: Pain) Qty: 0 RF: 0 Discontinued naproxen sodium [Aleve] 220 mg Tablet 660 - 880 mg PO Q12H PRN (Reason: Pain) RF: 0 Discharge Orders: Discharge Order (Routine); Ordered 07/30/21 Ordered By: Yahir Lopes Other Ambulatory Orders: DME: Oxygen (Order) Location: None Selected Ordered By: Yahir Lopes Referrals: Ramirez Martinez FNP [Primary Care Provider] - 2 weeks Capri Horton FNP [Nurse Practitioner] - 1 week Discharge Diet: Cardiac Discharge Activity: Increase activity as tolerated Patient Instructions: Acute Kidney Injury (DC), Opioid Safety, Post Angiogram Home Care Instructions Discharge Attestations Time Spent in Discharge Care*: less than 30 min Quality Metrics Clinical Quality Measures During this hospital stay, did patient experience: None Coding Level of Care Code Acute Chg FW DC note Diagnoses Non-ST elevation (NSTEMI) myocardial infarction I21.4 COPD (chronic obstructive pulmonary disease) J44.9 Hypertension I10 Hypertension type: primary hypertension Hypertension I10 MARILEE (acute kidney injury) N17.9
[2021-07-30 12:12] VITALS: BP 100/69; PULSE 65; RESP 20; O2SAT 94
--- NOTE | 2021-07-30 12:22 | PM.PN ---
Subjective Subjective: Interval history: Seen this morning. Patient states he is comfortable on the 2 L oxygen is on. He also uses 2 L at home which is his baseline. He does state that his family is positive for Covid at home. He states that he feels well but was slightly nauseous this morning but right now is feeling okay. He was able to tolerate his breakfast okay as well. He is aware that he is on antibiotics for pneumonia and will complete those. No acute events overnight. He has no other complaints to offer at this time. Vitals/I&O/Wt Last Vital Signs Temp 97.9 F 07/30/21 08:32 Pulse 65 07/30/21 12:12 Resp 20 H 07/30/21 12:12 BP 100/69 07/30/21 12:12 Pulse Ox 94 07/30/21 12:12 07/29/21 07/30/21 07/30/21 22:59 06:59 14:59 Intake Total 100 / 100 200 / 300 Output Total 410 / 1110 1350 / 2460 230 / 230 Balance -310 / -1010 -1150 / -2160 -230 / -230 Weight last 48 hrs Weight 116.573 kg Physical Exam Narrative: EXAM NARRATIVE: General: Alert oriented x3, patient seen sitting up in recliner on 3 L nasal cannula, normal respiratory effort no acute distress. HEENT: Normocephalic, atraumatic, EOMI, Cardio: Normal S1-S2, no gross murmurs. Appears clinically euvolemic. Respiratory: Diminished bilateral air entry, no gross wheezes or rhonchi appreciated, mildly coarse breath sounds at bases. GI: Abdomen soft, Behavior: Appropriate and cooperative Extremities: No edema appreciated Data : 07/30/21 05:12 07/30/21 05:12 Micro: Microbiology 07/27/21 13:50 Urine Culture - Final Urine,Clean Catch A&P Assessment and plan (1) MARILEE (acute kidney injury): Status: Acute (2) Acute respiratory failure with hypoxia: Status: Acute (3) COVID: Status: Acute (4) Right lower lobe pneumonia: Status: Acute (5) Hypertensive emergency: Status: Acute (6) Non-ST elevation (NSTEMI) myocardial infarction: Status: Acute (7) COPD (chronic obstructive pulmonary disease): Status: Acute Additional A&P Information Patient is status post NSTEMI status post stent in obtuse marginal on July 25, patient is symptom-free now. He is to continue his dual antiplatelet therapy and his medications that have been prescribed to him. He also required nitroglycerin drip briefly at the time of admission but blood pressure is now controlled with oral antihypertensive regimen. After cardiac cath he was tested for Covid due to acute hypoxia. He did not have respiratory failure however. He is doing well on 3 L nasal cannula and has no conversational dyspnea no acute respiratory distress. He tested positive for Covid. He has been able to maintain his oxygen saturation. Home oxygen evaluation was also done and he qualified for 3 L which is his home baseline. Patient will need to quarantine for next 10 days at home. I have discussed the plan with him in detail and he is agreeable to go home today. He feels well. He will be discharged home. Please see discharge summary by Dr. GUTIÉRREZ. I will discharge him on Levaquin 750 mg for another 5 days to cover for his right lower lobe pneumonia. Attestations Medical Necessity Statement*: Will be discharged home today. Coding Level of Care Code Acute [facility] Tester for [facility] Diagnoses MARILEE (acute kidney injury) N17.9 Acute respiratory failure with hypoxia J96.01 COVID U07.1 Right lower lobe pneumonia J18.9 Hypertensive emergency I16.1 Non-ST elevation (NSTEMI) myocardial infarction I21.4 COPD (chronic obstructive pulmonary disease) J44.9
--- NOTE | 2021-07-30 13:21 | PC.NURSE ---
Pt has a portable tank in his room that he owns when i double check it, his tank is empty. pt checked it again. and it is empty. Notified case mgt and case mgt Kimmy stated he refused to get us a portable tank. Notified Dr. Cardoso on pt's refusal.
--- NOTE | 2021-07-30 14:15 | PC.NURSE ---
Discharge Note Patient discharged to home via wheelchair accompanied by family . Discharge instructions reviewed with patient and/or plastic products sales representative. Mobile pharmacy medications and/or prescriptions provided. Belongings/home medications returned.
[2021-07-30 14:30] VITALS: BP 100/69
--- NOTE | 2021-07-30 14:30 | PC.NURSE ---
Rx called to preferred pharmacy Verified at the [facility] the pt's new meds. rx called in as well.
--- NOTE | 2021-08-02 15:13 | PC.SOCIAL ---
follow up call made to patient. pt wasn't feel great yesterday. spoke with pt today and he reports he is feeling better. he feels his breathing has improved. writers number given to patient in case he has questions or concerns.
== END 2021-07-30 14:00 | disposition home or self-care (01) | DRG 246 ==
LOC: ER 18:06 → CSU 18:13
PROVIDERS: Internal Medicine; Student in an Organized Health Care Education/Training Program; Admitting Provider Internal Medicine; Emergency Provider Emergency Medicine; PCP Registered Nurse; Visit Provider Internal Medicine
PROC: 027034Z Dilation of Coronary Artery, One Artery with Drug-eluting Intraluminal Device, Percutaneous Approach (ICD-10-PCS; principal; 2021-07-26 06:00)
PROC: 027034Z Dilation of Coronary Artery, One Artery with Drug-eluting Intraluminal Device, Percutaneous Approach (ICD-10-PCS; 2021-07-26 06:00)
DX: I21.4 Non-ST elevation (NSTEMI) myocardial infarction (principal); U07.1 COVID-19; J12.82 Pneumonia due to coronavirus disease 2019; J44.0 Chronic obstructive pulmonary disease with (acute) lower respiratory infection; J96.11 Chronic respiratory failure with hypoxia; I16.1 Hypertensive emergency; N17.9 Acute kidney failure, unspecified; I10 Essential (primary) hypertension; E78.5 Hyperlipidemia, unspecified; E66.9 Obesity, unspecified; Z68.34 Body mass index [BMI] 34.0-34.9, adult; I25.2 Old myocardial infarction; M72.0 Palmar fascial fibromatosis [Dupuytren]; I25.110 Atherosclerotic heart disease of native coronary artery with unstable angina pectoris; Z95.5 Presence of coronary angioplasty implant and graft; Z87.891 Personal history of nicotine dependence; Z79.82 Long term (current) use of aspirin; Z79.02 Long term (current) use of antithrombotics/antiplatelets; Z99.81 Dependence on supplemental oxygen; E86.0 Dehydration
CPT/HCPCS: 36415; 71045; 80048; 80053; 80061; 81001; 82044; 83036; 83690; 83880; 84145; 84300; 84443; 84484; 85025; 85347; 85378; 86140; 87040; 87086; 87426; 87635; 93005; 93306; 93458; 94640; 96372; 97110; 97116; 97161; 99285; C1725; C1769; C1874; C1887; C1894; C9600; J1100; J1644; J1650; J1956; J2250; J2405; J3010; J3490; J7030; Q0163; Q9967